=== PATIENT | male | born 1960 | race Caucasian/White ===

== ENCOUNTER 2018-06-01 19:28 | Inpatient (IN) | payer OTHER, SELFPAY ==
[2018-06-01 19:30] VITALS: BP 134/96; PULSE 118; RESP 18; TEMP 37; O2SAT 98; BMI 32.6
--- NOTE | 2018-06-01 20:19 | ED.RN ---
NO OLD EKG'S IN MUSE
[2018-06-01] MEDS: Ondansetron 4 MG/2 ML Vial IV (20:40)
[2018-06-01] MEDS: Morphine 4 MG/ML Syringe IV (20:40)
[2018-06-01] MEDS: 0.9% Normal Saline 1,000 ML 1000 ML IV (20:40)
[2018-06-01 20:51] LABS: Absolute Lymphocyte Count 1.98 X10^3/ul (0.83-4.51); Absolute Neutrophil Count 3.6 X10^3/uL (2.0-7.7); Basophil# 0.02 X10^3/uL; Basophil% 0.3 % (0-1); Eosinophil# 0.03 X10^3/uL; Eosinophils% 0.5 % (0-5); Hematocrit 44.7 % (40-54); Hemoglobin 15.2 g/dl (13.0-16.5); Lymphocyte # 1.98 X10^3/ul (4.0); Mean Corpuscular Hgb 29.7 pg (27.0-32.0); Mean Corpuscular Volume 87.3 fL (80-94); Mean Platelet Vol. 10.4 fl (6.2-12.0); Monocyte# 0.73 X10^3/uL; Monocyte% 11.4 % (0-10); Neutrophil % 56.5 % (47-70); Platelet Count 205 K/mm3 (150-450); RBC Distribution Width CV 13.3 % (11.6-14.6); RBC Distribution Width SD 42.2 fl (35.1-43.9); Red Blood Count 5.12 M/mm3 (4.6-6.2); White Blood Count 6.4 K/mm3 (4.4-11.0)
[2018-06-01 20:53] LABS: POSITIVE COUNT NO; POSITIVE DIFFERENTIAL NO; POSITIVE MORPHOLOGY NO
[2018-06-01 21:02] LABS: AST(SGOT) 43 U/L (15-37); Alanine Aminotransfer ALT/SGPT 28 U/L (16-61); Albumin, Serum 3.4 g/dL (3.2-5.0); Alkaline Phosphatase 78 U/L (45-117); Anion Gap 7 (5-15); BUN 12 mg/dL (7-18); BUN/Creat Ratio 11.8 RATIO (10-20); Bilirubin, Direct 0.07 mg/dL (0.00-0.30); Calcium,Total 8.2 mg/dL (8.5-10.1); Chloride 105 mmol/L (98-107); Creatinine, Serum 1.02 mg/dL (0.70-1.30); EST Glomerular Filtration Rate 80 mL/min (>60); Est Glom Filt Rate - Afr Amer 97 mL/min (>60); Estimated Creatinine Clearance 79.17 ml/min; Globulin 4.2 g/dL (2.2-4.2); Glucose 98 mg/dL (74-106); Potassium 4.4 mmol/L (3.5-5.1); Protein, Total 7.6 g/dL (6.4-8.2); Sodium Level 138 mmol/L (136-145)
[2018-06-01 21:29] LABS: Lactic Acid 0.9 mmol/L (0.4-2.0)
[2018-06-01 21:52] VITALS: BP 156/97; PULSE 98; RESP 15; O2SAT 95
[2018-06-01 22:13] LABS: Bacteria 0 SEEN /hpf (None Seen); Mucous, Urine 0 SEEN /hpf (<or=2+); Red Blood Cells-Urine 0 SEEN /hpf (0-5); White Blood Cells 0 SEEN /hpf (0-5)
[2018-06-01 22:14] LABS: Color, Urine Yellow (Yellow); Glucose, Dipstick Normal (Normal); Ketone-Dipstick Negative (Negative); Leukocyte Esterase-Dipstick Negative /ul (Negative); Nitrite-Dipstick Negative (Negative); Occult Blood-Urine Negative /ul (Negative); Protein-Dipstick Negative (Negative); Specific Gravity, Urine 1.015 (1.002-1.030); Urine Bilirubin Dipstick Negative (Negative); Urine Clarity Sl. Cloudy (Clear); Urine Urobilinogen Normal (Normal)
[2018-06-01] MEDS: 0.9% Normal Saline 1,000 ML 999 ML IV (22:15)
[2018-06-01 22:18] LABS: CPK Total, Creatine Kinase 188 U/L (39-308)
--- NOTE | 2018-06-01 22:18 | HP.PCM_ITS ---
Problem List (1) Generalized weakness Status: Acute History of Present Illness Date of Admission: 06/01/18 Chief Complaint: Generalized weakness ?2 days The patient is a 57 year old M with a significant history of PTSD, anxiety, hypertension who presents because of a inability to walk. Patient reports that 2 days ago he began to notice weakness in all his extremities. And his weakness has progressively worsened to a point that he is not able to walk. Associated with his symptoms is a generalized pain; more pronounced in his bilateral hips and thighs. He reports some transient tingling in his right hand. He states that he does not have shortness of breath at rest. However if he tries to move he developed shortness of breath. Past Medical History Medical History: Medical History (Last Updated 06/01/18 @ 23:14 by Maycol Lara MD) HTN (hypertension) I10 Allergies No Known Allergies Allergy (Verified 06/01/18 19:30) Home Medications: Ambulatory Orders Medication Instructions Recorded NK [NK] 06/01/18 Surgical History: - - Left hand surgery Psychiatric History: Anxiety, Post traumatic stress Lives: Roommate Smoking Status: Former smoker Tobacco Use: Chew Alcohol: None Drugs: None - *Family History Maternal History Items: Diabetes, Hypertension, Renal Disease Paternal History Items: No pertinent history Review of Systems Constitutional: Denies: Chills, Fever, Weight Change HEENT: Reports: -. Denies: Head Aches, Sinus Congestion, Sinus Drainage Cardiovascular: Denies: Chest Pain, Palpitations Respiratory: Reports: Shortness of breath upon exertion Gastrointestinal: Denies: Abdominal Pain, Nausea, Vomiting Genitourinary: Denies: Dysuria Musculoskeletal: Reports: Arm Pain, Leg Pain, Muscle pain, Neck Pain, Shoulder Pain Skin: Denies: Rash, Wounds Neurological: Reports: Tingling - Transient and right hand Psychiatric: Denies: Homicidal Ideations, Suicidal Ideations Hematologic/ Lymphatic: Denies: Easy Bruising, Easy Bleeding VTE Information - Inpt Only VTE Present on Admission: No VTE Mechan Device Prophylaxis: None VTE Pharm Prophylaxis ordered?: Yes Patient Problems: Active and Suspected Problems (Last Updated 06/01/18 @ 23:14 by Maycol Lara MD) Generalized weakness (Acute) - Physical Exam General: Alert, Oriented x3, Cooperative HEENT: Atraumatic, PERRLA, EOMI, Normocephalic, - - Thyroid unremarkable. Neck: Supple, No JVD, Negative Carotid Bruits Lungs: Clear to auscultation, Normal air movement Cardiovascular: Regular rate, No murmurs Abdomen: Bowel Sounds Present, Soft, Non Tender Extremities: No edema, Capillary Refill Less than 3 Seconds Skin: No rashes, No breakdown Musculoskeletal: Tenderness - Generalized tenderness. Lymphatic: No Cervical, Supraclavicular, or Inguinal Adenopathy Neurological: Cranial nerves II-XII grossly intact, - - Very restricted range of motion of all extremities. Right knee with 2 out of 4 deep tendon reflexes. All other extremities with hyporeflexes. Psych/Mental Status: Appropriate Vital Signs Temp Pulse Resp BP Pulse Ox 98.6 F 98 15 156/97 H 95 06/01/18 19:30 06/01/18 21:52 06/01/18 21:52 06/01/18 21:52 06/01/18 21:52 Oxygen Delivery Method Room Air Weight: 97.522 kg Body Mass Index (BMI) 32.6 Laboratory Tests Past 24 Hrs 06/01/18 06/01/18 06/01/18 20:30 20:30 20:30 WBC 6.4 RBC 5.12 Hgb 15.2 Hct 44.7 MCV 87.3 MCH 29.7 MCHC 34.0 RDW 13.3 RDW Differential 42.2 Plt Count 205 MPV 10.4 Immature Gran % (Auto) 0.300 Neut % (Auto) 56.5 Lymph % (Auto) 31.0 [place] % (Auto) 11.4 H Eos % (Auto) 0.5 Baso % (Auto) 0.3 Absolute Neuts (auto) 3.6 Absolute Lymphs (auto) 1.98 Total Counted Not Reportable Sodium 138 Potassium 4.4 Chloride 105 Carbon Dioxide 26.0 Anion Gap 7 BUN 12 Creatinine 1.02 Estim Creat Clear Calc 79.17 Est GFR (MDRD) Af Amer 97 Est GFR (MDRD) Non-Af 80 BUN/Creatinine Ratio 11.8 Glucose 98 Lactic Acid 0.9 Calcium 8.2 L Total Bilirubin 0.60 Direct Bilirubin 0.07 AST 43 H ALT 28 Alkaline Phosphatase 78 Total Creatine Kinase Troponin I < 0.015 Total Protein 7.6 Albumin 3.4 Globulin 4.2 Urine Color Urine Clarity Urine pH Ur Specific [place] Urine Protein Urine Glucose (UA) Urine Ketones Urine Occult Blood Urine Nitrite Urine Bilirubin Urine Urobilinogen Ur Leukocyte Esterase Urine RBC Urine WBC Ur Squamous Epith Cells Urine Bacteria Urine Mucus 06/01/18 06/01/18 21:50 22:05 WBC RBC Hgb Hct MCV MCH MCHC RDW RDW Differential Plt Count MPV Immature Gran % (Auto) Neut % (Auto) Lymph % (Auto) [place] % (Auto) Eos % (Auto) Baso % (Auto) Absolute Neuts (auto) Absolute Lymphs (auto) Total Counted Sodium Potassium Chloride Carbon Dioxide Anion Gap BUN Creatinine Estim Creat Clear Calc Est GFR (MDRD) Af Amer Est GFR (MDRD) Non-Af BUN/Creatinine Ratio Glucose Lactic Acid Calcium Total Bilirubin Direct Bilirubin AST ALT Alkaline Phosphatase Total Creatine Kinase Pending Troponin I Total Protein Albumin Globulin Urine Color Yellow Urine Clarity Sl. Cloudy Urine pH 7.0 Ur Specific [place] 1.015 Urine Protein Negative Urine Glucose (UA) Normal Urine Ketones Negative Urine Occult Blood Negative Urine Nitrite Negative Urine Bilirubin Negative Urine Urobilinogen Normal Ur Leukocyte Esterase Negative Urine RBC Pending Urine WBC Pending Ur Squamous Epith Cells Pending Urine Bacteria Pending Urine Mucus Pending Assessment/Plan All Active Problems (Last Updated 06/01/18 @ 23:14 by Maycol Lara MD) Generalized weakness (Acute) The patient is a 57 year old M with a significant history of PTSD, anxiety, hypertension who presents because of inability to walk; inability to raise his extremities general weakness and generalized pain. Generalized weakness, inability to walk, and generalized pain. Differential diagnosis includes Guillain-Saleh?, Spinal cord disease, Polymyositis, Multiple sclerosis, West Nile; hypothyroidism or others. Discussed with ED doctor to get a lumbar puncture for studies. Unsuccessful attempt. LP by fluoroscopy ordered. CFS studies including cell counts total protein and West Nile IgM ordered. Oxycodone 5 mg every 6 hours for pain Scheduled Tylenol Neurology consult Vital capacity and NIF every 6 hours MRI of brain and cervical spine Blood cultures ?2 Respiratory pathogen panel. TSH ordered. Hypertension The patient reports that his hypertension is well controlled without any medication Routine vitals PTSD/anxiety Clinical monitoring . DVT prophylaxis subcutaneous Lovenox Code Visit Inpatient E&M: 37462 Init Hosp L3
[2018-06-01 22:20] LABS: Squamous Epithelial Cells - UA 0-5 SEEN /hpf (0-5)
--- NOTE | 2018-06-01 23:21 | NURSING ---
Called [facility] charge nurselorena to send patient to the floor.
--- NOTE | 2018-06-01 23:30 | ED.VISSUMM ---
- ER Visit Summary Date of Service: 06/01/18 Chief Complaint: Weakness History of Present Illness: The patient is a 57 M with 2-3 day history of progressing weakness in his legs and arms. He had some difficulty breathing when he walked up the steps. No fever chills. No chest pain. No recent illness. Physical Examination: Not appear in acute distress. Moist mucous membranes, no obvious facial deformity No C-spine tenderness supple neck. Regular rate and rhythm without any obvious murmurs Clear lungs bilaterally speaking in full sentences without any obvious respiratory distress Abdomen soft and nontender no guarding or rebound Moves all extremities without any difficulty or pain. Skin does not show any obvious rashes or lesions, no trauma. Alert oriented ?3 with no gross focal deficit. Patient does have reflexes. He does have pain on palpation to his quadriceps muscles, he has weakness of both the arms and the legs, the leg somewhat worse. Emergency Department Course and Treatment: Patient has an unremarkable workup in the emergency department, he does not give any history of progressive ascending weakness, and he does have intact reflexes but the possibility of Guillain-Saleh? still there, I did attempt a lumbar puncture but because his body habitus I could not get it done. I discussed with the hospitalist for admission. Patient will need further workup tomorrow as well as a neurological consult. He will be observed tonight. Admit stable condition Impression: [Weakness] This note was generated with [employer] dictation software. It may contain incorrect words, spelling, and punctuation that were not noted in review of the chart prior to signing ED Disposition - Plan for ED Patient: Chief Complaint: Shortness of Breath
[2018-06-02] VITALS (18 sets, daily range): BP systolic 116–150; BP diastolic 67–98; PULSE 67–96; RESP 16–18; TEMP 36.6–37.1; O2SAT 94–96; BMI 32.5
[2018-06-02] MEDS: oxyCODONE 5 MG Tablet PO ×2 (00:47→17:46)
[2018-06-02 01:00] LABS: Thyroid Stim Hormone (TSH) 4.73 uIU/mL (0.358-3.74)
[2018-06-02 05:37] LABS: Anion Gap 11 (5-15); BUN 13 mg/dL (7-18); BUN/Creat Ratio 15.2 RATIO (10-20); Chloride 106 mmol/L (98-107); Creatinine, Serum 0.85 mg/dL (0.70-1.30); EST Glomerular Filtration Rate 99 mL/min (>60); Est Glom Filt Rate - Afr Amer 120 mL/min (>60); Glucose 124 mg/dL (74-106); Potassium 4.1 mmol/L (3.5-5.1); Sodium Level 142 mmol/L (136-145)
[2018-06-02] MEDS: Acetaminophen 325 MG Tablet 650 MG PO ×2 (06:30→13:25)
[2018-06-02 07:22] LABS: Mean Corp Hgb Conc 34.1 g/gl (32-36); Mean Platelet Vol. 10.5 fl (6.2-12.0); Platelet Count 203 K/mm3 (150-450); RBC Distribution Width CV 13.4 % (11.6-14.6); Red Blood Count 4.66 M/mm3 (4.6-6.2); Scan Indicated on CBC? Y/N NO; White Blood Count 5.2 K/mm3 (4.4-11.0)
[2018-06-02 08:36] LABS: Prothrombin Time (Protime)PT. 12.9 SECONDS (11.7-14.9)
[2018-06-02 08:37] LABS: Partial Thromboplast Time 34.9 Seconds (24.1-36.2)
--- NOTE | 2018-06-02 10:41 | CCN.REFER ---
See RN CM Assessment link. DC PLAN: undetermined. -awaiting PT/OT evaluations, neuro consult. -Pt was independent, drives prior to admission. Celio DICKINSONN RN ACM
[2018-06-02 11:23] LABS: Lyme Ab Screen Interpretation REF LAB
--- NOTE | 2018-06-02 13:18 | CYSPIN_PTH ---
PATIENT: KRYSTINA WOODS LOC: [facility] U#:[id number] AGE/SX: 57/M ROOM: [facility] RE06/01/[address]: Dr. Breann Delgado MD : 1960 BED: 1 DIS: 06/05/2018 SPEC #: [id number] RECD: 06/02/18 13:49 STATUS: DALY REQ #: [id number] MONA: 06/02/18 13:[address]: Kelsey Turner DEPT: CYTOLOGY RECD BY: Dexter Clement ENTERED: 06/02/18 13:51 SP TYPE: CYSPIN FL OTHR DR: DO Dr. Maycol Banks MD Dr. Norman Friedman, MD No Primary Care Phys Tissues: Cerebrospinal Fluid Procedures: Pap Stain (control) Special Stain Group II Cytospin Fluid HEADER OPERATION: Lumbar puncture PRE-OP DIAGNOSIS: Weakness TISSUE SUBMITTED: Cerebrospinal fluid for cytology DIAGNOSIS CYTOLOGY Cerebrospinal fluid for cytology (cytospin): Negative for malignant cells. SJ:braeden 06/03/18 CYTOLOGY STUDY Slides are reviewed. CYTOLOGY GROSS Received is 2 ml of clear colorless fluid labeled with the patient's name and and designated per the requisition as CSF. Submitted for cytology preparation. 06/02/18 TC:5 CPT: 68022
[2018-06-02 13:29] LABS: Cytology, Body Fluid / CSF SEE PATHOLOGY REPORT
--- NOTE | 2018-06-02 13:38 | PCM.PN.HOSP ---
Patient Problems: Active and Suspected Problems (Last Updated 06/01/18 @ 23:14 by Maycol Lara MD) Generalized weakness (Acute) Subjective: still with myalgias. symptoms began suddenly. never had this before. Vitals/I&O's: Vital Signs Temp Pulse Resp BP Pulse Ox 37.1 C 82 16 132/67 H 96 06/02/18 11:15 06/02/18 11:29 06/02/18 11:15 06/02/18 11:15 06/02/18 11:15 Oxygen Delivery Method Room Air Weight: 97 kg Body Mass Index (BMI) 32.5 Intake and Output for Last 24 Hours 05/31/18 06/01/18 06/02/18 23:59 23:59 23:59 Intake Total 1040 / 1040 Output Total 700 / 700 Balance 340 / 340 General: Alert, No apparent distress, - - uncomfortable. HEENT: Atraumatic, Normocephalic, - - atraumatic. Oral: Moist Mucosa, No Gingival or Mucosal Lesions/ Ulcerations Neck: No Nodes, Thyroid Normal Size and Texture Lungs: Clear to auscultation, Normal air movement, No rhonchi, No wheeze Cardiovascular: Regular rate, Regular Rhythm, Normal S1, Normal S2, No murmurs Abdomen: Bowel Sounds Present, Soft, Non Tender, Non-Distended, No Hepato-splenomegaly, Passing Flatus Extremities: No edema, No Calf Tenderness Skin: No rashes, No breakdown Musculoskeletal: No Tenderness to Palpation of Joints or Extremities, No Muscle Wasting Neurological: Neuro grossly intact, Sensory exam intact to light touch and pain, - - no clonus. Psych/Mental Status: Normal Affect, Appropriate Microbiology Past 72 Hours 06/02/18 01:40 Mucosa - Nose Respiratory Panel (PCR) - Final Laboratory Results 06/02/18 00:27: TSH 4.73 H 06/02/18 00:27: Free T4 Pending, Free T3 pg/dL Pending 06/02/18 05:05: WBC 5.2, RBC 4.66, Hgb 14.0, Hct 41.0, MCV 88.0, MCH 30.0, MCHC 34.1, RDW 13.4, RDW Differential 43.0, Plt Count 203, MPV 10.5 06/02/18 05:05: Sodium 142, Potassium 4.1, Chloride 106, Carbon Dioxide 25.0, Anion Gap 11, BUN 13, Creatinine 0.85, Estim Creat Clear Calc 95.00, Est GFR (MDRD) Af Amer 120, Est GFR (MDRD) Non-Af 99, BUN/Creatinine Ratio 15.2, Glucose 124 H, Calcium 8.0 L 06/02/18 05:05: SHARON Screen Pending, ANTONIO-1 Antibody Pending, SS-A/Ro IgG Antibody Pending, SS-B/La IgG Antibody Pending, Sm ([place]) Antibody Pending, ESTHETICIAN Antibody Pending, Scl-70 Scleroderma Ab Pending, Double Strand DNA Ab Pending, Centromere B Antibody Pending 06/02/18 05:05: PT 12.9, INR 1.0, APTT 34.9 06/02/18 05:30: Lyme Total Antibody Pending, Lyme Disease Interpret Pending 06/02/18 13:03: CMV DNA Qual PCR Pending 06/02/18 13:03: CSF Cryptococcus Ag Pending 06/02/18 13:03: Miscellaneous Cytology Pending 06/02/18 13:03: Enterovirus RNA (PCR) Pending 06/02/18 13:03: CSF Glucose Pending 06/02/18 13:03: Herpes Simplex Culture Pending, HSV I DNA PCR Pending, HSV II DNA PCR Pending, HSV Final Result Pending 06/02/18 13:03: CSF Total Protein Pending 06/02/18 13:03: CSF VZV DNA (PCR) Pending 06/02/18 13:03: CSF VDRL Pending 06/02/18 13:03: West Nile RNA (RT-PCR) Pending, West Nile Interp Pending Current Medications Bisacodyl (Dulcolax) 5 mg PO DAILY PRN PRN PRN Reason: Constipation Enoxaparin Sodium (Lovenox) 40 mg SC DAILY@1000 [place] Last Admin: 06/02/18 13:23 Dose: Not Given Magnesium Hydroxide (Milk Of Magnesia) 30 ml PO DAILY PRN PRN Reason: Constipation Ondansetron HCl (Zofran) 4 mg IV Q6H PRN PRN PRN Reason: NAUSEA/VOMITING Oxycodone HCl (Oxyir) 5 mg PO Q6H PRN PRN PRN Reason: PAIN Last Admin: 06/02/18 00:47 Dose: 5 mg Sodium Chloride () 5 - 30 ml IV UD PRN PRN Reason: SALINE FLUSH Medical Necessity - Tobacco Use Smoking Status: Former smoker Tobacco Use: Chew Assessment/Plan All Active Problems (Last Updated 06/01/18 @ 23:14 by Maycol Lara MD) Generalized weakness (Acute) 1. myalgias; unclear etiology CK normal MRI brain and Cspine negative. MRI L spine report pending. supportive mgmt 2. Weakness, generalized no focal deficits question if related to myalgias 3. DVT proph: LMWH. Code Visit Inpatient E&M: 98921 Subs Hosp L3
[2018-06-02 13:44] LABS: Appearance CSF (character) CLEAR (Clear); Auto B Fluid Analyzer BKGD Ct COUNTS W/IN LIMITS (W/IN LIMITS); CSF Color COLORLESS (Colorless); Tested Tube # 3; Total Cell Count CSF 0.004 10^3/uL (0.000-0.000); White Count, CSF 0.004 10^3/uL (0.000-0.000)
[2018-06-02 13:45] LABS: Body Fluid Mononuclear WBC # 0.002 10^3/uL; Body Fluid Polynuclear WBC # 0.002 10^3/uL; Body Fluid QC Type(s) BF1Q
--- NOTE | 2018-06-02 13:50 | PCM.CONS.GEN ---
Problem List (1) Generalized weakness Status: Acute Reason for Consult Date of Consultation: 06/02/18 Reason for Consultation: generalized weakness and pain History of Present Illness: The patient is a 57 year old CM with PMH HTN (not on medications-per patient he does not visit physicians regularly), EVY not on CPAP admitted with generalized weakness, and pain. 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 Does not use cane or walker to ambulate, denies any falls, denies any sick contacts, denies any rash, tick bite, denies any history of respiratory infection or diarrhea recently. At present denies any BATISTA, visual disturbances, speech disturbances, focal motor weakness or sensory loss. ED documented ascending weakness but there is no ascending weakness per patient's clinical history, even though had normal reflexes in the ED still it was felt to be GBS by ED physician and LP was attempted which failed and he is due to undergo LP under fluoroscopy guidance soon. Per documentation he denied any SOB at rest but may have some breathing issues on moving. But he denies any SOB at present.He does complaint of neck pain and lower back pain with radicular symptoms, denies any urinary retention or incontinence. [] Past Medical History Medical History: Medical History (Last Updated 06/01/18 @ 23:14 by Maycol Lara MD) HTN (hypertension) I10 Allergies No Known Allergies Allergy (Verified 06/01/18 19:30) Home Medications: Ambulatory Orders Medication Instructions Recorded NK [NK] 06/01/18 Surgical History: - - Left hand surgery Psychiatric History: Anxiety, Post traumatic stress Lives: Roommate Smoking Status: Former smoker Tobacco Use: Chew Alcohol: None Drugs: None - *Family History Maternal History Items: Diabetes, Hypertension, Renal Disease, Stroke, - - stroke in mother Paternal History Items: No pertinent history Review of Systems Constitutional: Reports: - - complete ROS negative except as documented in HPI - Physical Exam General: Alert HEENT: Normocephalic Neck: Supple Lungs: Normal air movement Cardiovascular: Normal S1, Normal S2 Abdomen: Bowel Sounds Present Extremities: No cyanosis Neurological: - - consious, alert, AoA x3, CN 2-12 grossly intact, pupils BERL, power- examination is severely restricted to pain, he does move both UE but has decreased effort due to pain, is not able to lift the LE against gravity again due to pain in the legs and thighs per patient, Reflexes B/L ++ B/S/T/K/ + A, plantars B/L flexor (patient able to flex his knees when plantars were elicited but was unable to flex the knees when asked to as was complaining of pain-was effort dependent too), no sensory loss, gait deferred, no cerebellar signs. Psych/Mental Status: Normal Affect Vital Signs Temp Pulse Resp BP Pulse Ox 98.8 F 82 16 132/67 H 96 06/02/18 11:15 06/02/18 11:29 06/02/18 11:15 06/02/18 11:15 06/02/18 11:15 Oxygen Delivery Method Room Air Weight: 97 kg Body Mass Index (BMI) 32.5 Intake and Output for Last 24 Hours 05/31/18 06/01/18 06/02/18 23:59 23:59 23:59 Intake Total 1040 / 1040 Output Total 700 / 700 Balance 340 / 340 Microbiology Past 72 Hours 06/02/18 01:40 Respiratory Panel (PCR) - Final Mucosa - Nose Laboratory Tests Past 24 Hrs 06/02/18 06/02/18 06/02/18 00:27 00:27 05:05 WBC 5.2 RBC 4.66 Hgb 14.0 Hct 41.0 MCV 88.0 MCH 30.0 MCHC 34.1 RDW 13.4 RDW Differential 43.0 Plt Count 203 MPV 10.5 PT INR APTT Sodium Potassium Chloride Carbon Dioxide Anion Gap BUN Creatinine Estim Creat Clear Calc Est GFR (MDRD) Af Amer Est GFR (MDRD) Non-Af BUN/Creatinine Ratio Glucose Calcium TSH 4.73 H Free T4 Pending Free T3 pg/dL Pending CSF Appearance CSF Color CSF WBC CSF RBC CSF Cell Count Tube # CSF Total Cell Counted CSF Comment CSF Glucose CSF Total Protein CSF VDRL CSF Cryptococcus Ag CSF VZV DNA (PCR) SHARON Screen ANTONIO-1 Antibody SS-A/Ro IgG Antibody SS-B/La IgG Antibody Sm ([place]) Antibody FELT DYEING MACHINE TENDER Antibody Scl-70 Scleroderma Ab Double Strand DNA Ab Centromere B Antibody Lyme Total Antibody Lyme Disease Interpret CMV DNA Qual PCR West Nile RNA (RT-PCR) [place] Interp Enterovirus RNA (PCR) Herpes Simplex Culture HSV I DNA PCR HSV II DNA PCR HSV Final Result Miscellaneous Cytology 06/02/18 06/02/18 06/02/18 05:05 05:05 05:05 WBC RBC Hgb Hct MCV MCH MCHC RDW RDW Differential Plt Count MPV PT 12.9 INR 1.0 APTT 34.9 Sodium 142 Potassium 4.1 Chloride 106 Carbon Dioxide 25.0 Anion Gap 11 BUN 13 Creatinine 0.85 Estim Creat Clear Calc 95.00 Est GFR (MDRD) Af Amer 120 Est GFR (MDRD) Non-Af 99 BUN/Creatinine Ratio 15.2 Glucose 124 H Calcium 8.0 L TSH Free T4 Free T3 pg/dL CSF Appearance CSF Color CSF WBC CSF RBC CSF Cell Count Tube # CSF Total Cell Counted CSF Comment CSF Glucose CSF Total Protein CSF VDRL CSF Cryptococcus Ag CSF VZV DNA (PCR) SHARON Screen Pending ANTONIO-1 Antibody Pending SS-A/Ro IgG Antibody Pending SS-B/La IgG Antibody Pending Sm ([place]) Antibody Pending F[employer]T D[employer]ING MACHINE TENDER Antibody Pending Scl-70 Scleroderma Ab Pending Double Strand DNA Ab Pending Centromere B Antibody Pending Lyme Total Antibody Lyme Disease Interpret CMV DNA Qual PCR West [place] RNA (RT-PCR) [place] Interp Enterovirus RNA (PCR) Herpes Simplex Culture HSV I DNA PCR HSV II DNA PCR HSV Final Result Miscellaneous Cytology 06/02/18 06/02/18 06/02/18 05:30 13:03 13:03 WBC RBC Hgb Hct MCV MCH MCHC RDW RDW Differential Plt Count MPV PT INR APTT Sodium Potassium Chloride Carbon Dioxide Anion Gap BUN Creatinine Estim Creat Clear Calc Est GFR (MDRD) Af Amer Est GFR (MDRD) Non-Af BUN/Creatinine Ratio Glucose Calcium TSH Free T4 Free T3 pg/dL CSF Appearance CSF Color CSF WBC CSF RBC CSF Cell Count Tube # CSF Total Cell Counted CSF Comment CSF Glucose CSF Total Protein CSF VDRL CSF Cryptococcus Ag Pending CSF VZV DNA (PCR) SHARON Screen ANTONIO-1 Antibody SS-A/Ro IgG Antibody SS-B/La IgG Antibody Sm ([place]) Antibody FELT DYEING MACHINE TENDER Antibody Scl-70 Scleroderma Ab Double Strand DNA Ab Centromere B Antibody Lyme Total Antibody Pending Lyme Disease Interpret Pending CMV DNA Qual PCR Pending [place] RNA (RT-PCR) [place] Interp Enterovirus RNA (PCR) Herpes Simplex Culture HSV I DNA PCR HSV II DNA PCR HSV Final Result Miscellaneous Cytology 06/02/18 06/02/18 06/02/18 13:03 13:03 13:03 WBC RBC Hgb Hct MCV MCH MCHC RDW RDW Differential Plt Count MPV PT INR APTT Sodium Potassium Chloride Carbon Dioxide Anion Gap BUN Creatinine Estim Creat Clear Calc Est GFR (MDRD) Af Amer Est GFR (MDRD) Non-Af BUN/Creatinine Ratio Glucose Calcium TSH Free T4 Free T3 pg/dL CSF Appearance CSF Color CSF WBC CSF RBC CSF Cell Count Tube # CSF Total Cell Counted CSF Comment CSF Glucose Pending CSF Total Protein CSF VDRL CSF Cryptococcus Ag CSF VZV DNA (PCR) SHARON Screen ANTONIO-1 Antibody SS-A/Ro IgG Antibody SS-B/La IgG Antibody Sm ([place]) Antibody FELT DYEING MACHINE TENDER Antibody Scl-70 Scleroderma Ab Double Strand DNA Ab Centromere B Antibody Lyme Total Antibody Lyme Disease Interpret CMV DNA Qual PCR [place] RNA (RT-PCR) [place] Interp Enterovirus RNA (PCR) Pending Herpes Simplex Culture HSV I DNA PCR HSV II DNA PCR HSV Final Result Miscellaneous Cytology Pending 06/02/18 06/02/18 06/02/18 13:03 13:03 13:03 WBC RBC Hgb Hct MCV MCH MCHC RDW RDW Differential Plt Count MPV PT INR APTT Sodium Potassium Chloride Carbon Dioxide Anion Gap BUN Creatinine Estim Creat Clear Calc Est GFR (MDRD) Af Amer Est GFR (MDRD) Non-Af BUN/Creatinine Ratio Glucose Calcium TSH Free T4 Free T3 pg/dL CSF Appearance CSF Color CSF WBC CSF RBC CSF Cell Count Tube # CSF Total Cell Counted CSF Comment CSF Glucose CSF Total Protein Pending CSF VDRL CSF Cryptococcus Ag CSF VZV DNA (PCR) Pending SHARON Screen ANTONIO-1 Antibody SS-A/Ro IgG Antibody SS-B/La IgG Antibody Sm ([place]) Antibody FELT DYEING MACHINE TENDER Antibody Scl-70 Scleroderma Ab Double Strand DNA Ab Centromere B Antibody Lyme Total Antibody Lyme Disease Interpret CMV DNA Qual PCR [place] RNA (RT-PCR) [place] Interp Enterovirus RNA (PCR) Herpes Simplex Culture Pending HSV I DNA PCR Pending HSV II DNA PCR Pending HSV Final Result Pending Miscellaneous Cytology 06/02/18 06/02/18 06/02/18 13:03 13:03 13:07 WBC RBC Hgb Hct MCV MCH MCHC RDW RDW Differential Plt Count MPV PT INR APTT Sodium Potassium Chloride Carbon Dioxide Anion Gap BUN Creatinine Estim Creat Clear Calc Est GFR (MDRD) Af Amer Est GFR (MDRD) Non-Af BUN/Creatinine Ratio Glucose Calcium TSH Free T4 Free T3 pg/dL CSF Appearance Pending CSF Color Pending CSF WBC Pending CSF RBC Pending CSF Cell Count Tube # Pending CSF Total Cell Counted Pending CSF Comment Pending CSF Glucose CSF Total Protein CSF VDRL Pending CSF Cryptococcus Ag CSF VZV DNA (PCR) SHARON Screen ANTONIO-1 Antibody SS-A/Ro IgG Antibody SS-B/La IgG Antibody Sm ([place]) Antibody FELT DYEING MACHINE TENDER Antibody Scl-70 Scleroderma Ab Double Strand DNA Ab Centromere B Antibody Lyme Total Antibody Lyme Disease Interpret CMV DNA Qual PCR [place] RNA (RT-PCR) Pending West [place] Interp Pending Enterovirus RNA (PCR) Herpes Simplex Culture HSV I DNA PCR HSV II DNA PCR HSV Final Result Miscellaneous Cytology Assessment/Plan All Active Problems (Last Updated 06/01/18 @ 23:14 by Maycol Lara MD) Generalized weakness (Acute) The patient is a 57 year old CM with PMH HTN (not on medications-per patient he does not visit physicians regularly), EVY not on CPAP admitted with generalized weakness, and pain. 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 Does not use cane or walker to ambulate, denies any falls, denies any sick contacts, denies any rash, tick bite, denies any history of respiratory infection or diarrhea recently. At present denies any BATISTA, visual disturbances, speech disturbances, focal motor weakness or sensory loss. ED documented ascending weakness but there is no ascending weakness per patient's clinical history, even though had normal reflexes in the ED still it was felt to be GBS by ED physician and LP was attempted which failed and he is due to undergo LP under fluoroscopy guidance soon. Per documentation he denied any SOB at rest but may have some breathing issues on moving. But he denies any SOB at present.He does complaint of neck pain and lower back pain with radicular symptoms, denies any urinary retention or incontinence. Impression Generalized pain/weakness, myalgias Unlikely to be GBS at present clinically Plan -Labs reviewed- normal except high AST 43 and TSH-4.73 -Total CK-188 normal -MRI brain w/w/o contrast- reported nothing acute -MRI C spine w/w/o contrast-reported no extruded disc fragment, moderate stenosis of the left C6-C7 neural foramen, mild stenosis of the right C5-C6 neural foramen, minimal anterior wedging of C6 superior endplate, may be developmental or from remote injury, minimal anterior wedging of T1 superior endplate may be developmental or from remote injury, minimal compression fracture of T3 superior endplate may be from remote injury. -Recommend spine surgery consult -Await LP, west Nile testing, Lyme testing and rheumatological testing and anti Antonio ab testing. -Await MRI L spine -Can check NCS both LE/UE if possible. -Check UDS, ESR, CRP -PT/OT -GI/DVT prophylaxis -Fall precautions -Further medical management per primary team -Please call with questions if any -Thank you for allowing us to participate in patient's care and management I spent 60 minutes taking history, doing physical examination, reviewing medical records, coordinating care and counseling the patient.
[2018-06-02 13:52] LABS: Free T3 3.3 pg/mL (2.18-3.98); T4 Free Direct 1.06 ng/dL (0.76-1.46)
[2018-06-02 14:03] LABS: RBC Count, Spinal Fluid 3 /mm-3 (None seen)
[2018-06-02 14:11] LABS: Glucose Spinal Fluid 62 mg/dL (40-75)
[2018-06-02 14:37] LABS: Erythrocyte Sedimentation Rate 26 mm/hr (0-20)
[2018-06-02] MEDS: 0.9% Normal Saline 1,000 ML 150 ML IV (14:52)
[2018-06-02] MEDS: Acetaminophen 500 MG Tablet PO (16:54)
[2018-06-02 22:03] LABS: Amphetamine Urine VISTA NEGATIVE (<1000 ng/mL); Barbiturate Urine VISTA NEGATIVE (< 200 ng/mL); Benzodiazepine Urine VISTA NEGATIVE (< 200 ng/mL); Cocaine Urine VISTA NEGATIVE (< 300 ng/mL); Ecstacy Urine VISTA NEGATIVE (< 500 ng/mL); Methadone Urine VISTA NEGATIVE (< 300 ng/mL); PCP Urine VISTA NEGATIVE (< 25 ng/mL); THC Urine VISTA NEGATIVE (< 50 ng/mL); Vista UDS pH Range 5
[2018-06-03] VITALS (14 sets, daily range): BP systolic 135–155; BP diastolic 83–99; PULSE 76–95; RESP 16–18; TEMP 36.1–36.7; O2SAT 92–99
[2018-06-03] MEDS: oxyCODONE 5 MG Tablet PO ×2 (05:25→19:46)
--- NOTE | 2018-06-03 13:36 | PCM.PN.HOSP ---
Patient Problems: Active and Suspected Problems (Last Updated 06/01/18 @ 23:14 by Maycol Lara MD) Generalized weakness (Acute) Subjective: Still with pain, primarily in his legs. Vitals/I&O's: Vital Signs Temp Pulse Resp BP Pulse Ox 36.1 C L 87 16 135/93 H 99 06/03/18 08:24 06/03/18 10:59 06/03/18 08:24 06/03/18 08:24 06/03/18 08:24 Oxygen Delivery Method Room Air Weight: 97 kg Body Mass Index (BMI) 32.5 Intake and Output for Last 24 Hours 06/01/18 06/02/18 06/03/18 23:59 23:59 23:59 Intake Total 2705 / 2705 Output Total 1950 / 1950 Balance 755 / 755 General: Alert, - - uncomfortable. afebrile. HEENT: Atraumatic, Normocephalic Oral: Moist Mucosa, No Gingival or Mucosal Lesions/ Ulcerations Neck: No Nodes, Thyroid Normal Size and Texture Lungs: Clear to auscultation, Normal air movement, No rhonchi, No wheeze Cardiovascular: Regular rate, Regular Rhythm, Normal S1, Normal S2, No murmurs Abdomen: Bowel Sounds Present, Soft, Non Tender, Non-Distended, No Hepato-splenomegaly Skin: No rashes, No breakdown Musculoskeletal: No Tenderness to Palpation of Joints or Extremities, No Muscle Wasting Neurological: - - no clonus. DTR 3/4 in LE (patellar) bilaterally. Psych/Mental Status: Normal Affect, Appropriate Microbiology Past 72 Hours 06/02/18 13:03 Csf, Spinal Fluid Gram Stain - Final 06/02/18 13:03 Csf, Spinal Fluid CSF Culture - Preliminary No growth in 24 hours. Final to follow. 06/02/18 01:40 Mucosa - Nose Respiratory Panel (PCR) - Final Laboratory Results 06/02/18 00:27: Free T4 1.06, Free T3 pg/dL 3.3 06/02/18 05:05: ESR 26 H 06/02/18 05:05: C-React Prot High Sens 10.30 H 06/02/18 13:03: Miscellaneous Cytology SEE PATHOLOGY REPORT 06/02/18 13:03: CSF Glucose 62 06/02/18 13:03: CSF Total Protein 40.0 06/02/18 13:07: Fld Polynuclear WBCs # 0.002, Fld Polynuclear WBCs % 50.0, Fluid Mononuclear WBCs 0.002, Fld Mononuclear WBCs % 50.0, CSF Appearance CLEAR, CSF Color COLORLESS, CSF WBC 0.004 H, CSF RBC 3 H, CSF Cell Count Tube # 3, CSF Total Cell Counted 0.004 H, CSF Comment May follow 06/02/18 20:00: Urine Opiates Screen POSITIVE H, Urine Methadone Screen NEGATIVE, Ur Barbiturates Screen NEGATIVE, Ur Phencyclidine Scrn NEGATIVE, Ur Amphetamines Screen NEGATIVE, U Methamphetamin-MDMA NEGATIVE, U Benzodiazepines Scrn NEGATIVE, Urine Cocaine Screen NEGATIVE, U Cannabinoids Screen NEGATIVE, Ur Drug Screen Comment Current Medications Acetaminophen (Tylenol) 500 mg PO Q8H PRN PRN Reason: PAIN Last Admin: 06/02/18 16:54 Dose: 500 mg Bisacodyl (Dulcolax) 5 mg PO DAILY PRN PRN PRN Reason: Constipation Enoxaparin Sodium (Lovenox) 40 mg SC DAILY@1000 [place] Last Admin: 06/03/18 08:35 Dose: Not Given Magnesium Hydroxide (Milk Of Magnesia) 30 ml PO DAILY PRN PRN Reason: Constipation Ondansetron HCl (Zofran) 4 mg IV Q6H PRN PRN PRN Reason: NAUSEA/VOMITING Oxycodone HCl (Oxyir) 5 mg PO Q6H PRN PRN PRN Reason: PAIN Last Admin: 06/03/18 05:25 Dose: 5 mg Sodium Chloride () 5 - 30 ml IV UD PRN PRN Reason: SALINE FLUSH Medical Necessity - Tobacco Use Smoking Status: Former smoker Tobacco Use: Chew Assessment/Plan All Active Problems (Last Updated 06/01/18 @ 23:14 by Maycol Lara MD) Generalized weakness (Acute) 1. myalgias; unclear etiology CK normal MRI brain and Cspine negative. MRI L spine negative LP negative DW Dr. Turner, ordered a NCT supportive mgmt 2. Weakness, generalized no focal deficits question if related to myalgias 3. DVT proph: LMWH. Code Visit Inpatient E&M: 50810 Subs Hosp L3
--- NOTE | 2018-06-03 13:46 | CASEMGMT ---
RN KENA Note. PT/OT notes reviewed. Medical work up continues. RN CM spoke with NATALIA Villarreal re: possible dc needs if does not improve. CM will follow to assist with DC planning evaluation, equipment needs, possible HHS vs SNF. Celio DICKINSONN RN ACM
[2018-06-03] MEDS: 0.9% NaCl Peripheral Flush Adult/Peds IV (14:30)
[2018-06-03 20:07] LABS: HSV 1 By PCR Negative (Negative)
[2018-06-04] VITALS (16 sets, daily range): BP systolic 122–153; BP diastolic 67–97; PULSE 78–101; RESP 14–18; TEMP 36.4–37; O2SAT 94–97
--- NOTE | 2018-06-04 07:32 | PCM.PN.HOSP ---
Patient Problems: Active and Suspected Problems (Last Updated 06/01/18 @ 23:14 by Maycol Lara MD) Generalized weakness (Acute) Subjective: Patient was seen and examined. He complains of still feeling weak. He was able to ambulate with therapy but got slightly short of breath. Denies any dizziness or palpitations or chest pain. Vitals/I&O's: Vital Signs Temp Pulse Resp BP Pulse Ox 97.7 F L 79 16 145/90 H 97 06/04/18 05:52 06/04/18 05:52 06/04/18 05:52 06/04/18 05:52 06/04/18 05:52 Oxygen Delivery Method Room Air Weight: 97 kg Body Mass Index (BMI) 32.5 Intake and Output for Last 24 Hours 06/02/18 06/03/18 06/04/18 23:59 23:59 23:59 Intake Total 2705 / 2705 860 / 860 Output Total 1950 / 1950 Balance 755 / 755 860 / 860 General: Alert, Oriented x3, Cooperative, No apparent distress HEENT: Atraumatic, PERRLA, EOMI, Normocephalic Oral: Moist Mucosa Neck: Supple Lungs: Clear to auscultation, Normal air movement Cardiovascular: Regular rate, Regular Rhythm, Normal S1, Normal S2, No murmurs Abdomen: Bowel Sounds Present, Soft, Non Tender, Non-Distended, No Hepato-splenomegaly Extremities: No edema Skin: No rashes, No breakdown Musculoskeletal: No Tenderness to Palpation of Joints or Extremities Lymphatic: No Cervical, Supraclavicular, or Inguinal Adenopathy Neurological: Cranial nerves II-XII grossly intact, Neuro grossly intact Psych/Mental Status: Normal Affect, Appropriate Microbiology Past 72 Hours 06/02/18 13:03 Csf, Spinal Fluid Gram Stain - Final 06/02/18 13:03 Csf, Spinal Fluid CSF Culture - Preliminary No growth in 24 hours. Final to follow. 06/02/18 01:40 Mucosa - Nose Respiratory Panel (PCR) - Final Laboratory Results 06/02/18 13:03: Miscellaneous Cytology SEE PATHOLOGY REPORT Current Medications Acetaminophen (Tylenol) 500 mg PO Q8H PRN PRN Reason: PAIN Last Admin: 06/02/18 16:54 Dose: 500 mg Bisacodyl (Dulcolax) 5 mg PO DAILY PRN PRN PRN Reason: Constipation Enoxaparin Sodium (Lovenox) 40 mg SC DAILY@1000 [place] Last Admin: 06/03/18 08:35 Dose: Not Given Magnesium Hydroxide (Milk Of Magnesia) 30 ml PO DAILY PRN PRN Reason: Constipation Ondansetron HCl (Zofran) 4 mg IV Q6H PRN PRN PRN Reason: NAUSEA/VOMITING Oxycodone HCl (Oxyir) 5 mg PO Q6H PRN PRN PRN Reason: PAIN Last Admin: 06/03/18 19:46 Dose: 5 mg Sodium Chloride () 5 - 30 ml IV UD PRN PRN Reason: SALINE FLUSH Last Admin: 06/03/18 14:30 Dose: 10 ml Medical Necessity - Tobacco Use Smoking Status: Former smoker Tobacco Use: Chew Assessment/Plan All Active Problems (Last Updated 06/01/18 @ 23:14 by Maycol Lara MD) Generalized weakness (Acute) 57-year-old male with no significant past medical history comes in with generalized weakness and inability to walk. 1. Debility, myalgias, unclear etiology, Elevated CRP and ESR CK normal MRI brain is normal, C-spine MRI shows C6-C7 moderate spinal stenosis, MRI lumbar spine shows mild canal stenosis. CSF pathology so far is negative, neurology workup still pending, patient is being evaluated by PT and OT 2. DVT prophylaxis with Lovenox subcu Code Visit Inpatient E&M: 64804 Subs Hosp L2
[2018-06-04] MEDS: Enoxaparin 40 MG/0.4 ML Syringe SC (08:57)
[2018-06-04 11:54] LABS: HSV 2 By PCR Negative (Negative)
[2018-06-04 12:04] LABS: ANTINUCLEAR ANTIBODIES DIRECT Negative (Negative)
[2018-06-04 12:08] LABS: Cryptococcus Antigen CSF Negative (Negative)
[2018-06-04 15:05] LABS: Pathologist Review Reviewed
[2018-06-04] MEDS: Magnesium Hydroxide 30 ML UDC PO (15:10)
[2018-06-04] MEDS: Acetaminophen 500 MG Tablet PO (15:10)
--- NOTE | 2018-06-04 16:08 | NEURO_ITS ---
NCS and/or EMG Patient Report Ordering Doctor: Pete Lester DATE OF SERVICE: 06/03/18 Mark Sylvester is referred for electrodiagnostic testing of the right upper and right lower limb due to generalized weakness. Electrodiagnostic findings: Right median and ulnar motor studies are within normal limits. Normal right common peroneal and tibial motor response. Median , ulnar, tibial and peroneal F waves are normal. Normal H reflex bilaterally. Sensory responses are within normal limits. Needle EMG testing was not performed. Electrodiagnostic impression: This is a normal nerve conduction study of the right upper and right lower limb. There is no electrodiagnostic evidence for peripheral neuropathy. If there are any further questions, please do not hesitate to contact me
[2018-06-04] MEDS: oxyCODONE 5 MG Tablet PO (20:07)
[2018-06-05] VITALS (7 sets, daily range): BP systolic 120–135; BP diastolic 67–88; PULSE 75–93; RESP 16; TEMP 36.1–36.3; O2SAT 96–97
[2018-06-05] MEDS: Enoxaparin 40 MG/0.4 ML Syringe SC (10:07)
--- NOTE | 2018-06-05 10:51 | PCM.DC ---
- Discharge Diagnoses Current Active Problems: Current Active and Chronic Problems (Last Updated 06/01/18 @ 23:14 by Maycol Lara MD) Generalized weakness (Acute) Reason(s) for Visit for Discharge Instructions: Weakness You will use the following diet at home:: Regular Your food should be the consistency of: Regular Your liquids should be the consistency of: Regular/Thin Discharge Activity: Return to Normal Activity Additional Instructions: You have been referred to an outpatient physical therapy for warm water therapy. You should follow-up with a primary care physician for the rest of your results. Ok to take tylenol as needed for body pain Allergies/Adverse Reactions: Allergies No Known Allergies Allergy (Verified 06/01/18 19:30) Medications to take at Discharge NK [NK] 06/01/18 Primary Care Physician: Care Physician,No Primary [Primary Care Provider] - Please follow up with your Primary Care Physician in: within 2 weeks Test Results: Test results from this visit will be discussed in further detail at your follow-up appointment, if applicable. Proposed Discharge Date: 06/05/18
--- NOTE | 2018-06-05 10:53 | CASEMGMT ---
Addendum entered by Giancarlo Brooke 06/05/18 11:34: Discussed PCP with patient who has not established with PCP in [facility] yet. Request was for [facility]. MESFIN ESCUDERO called to office. They are unable to accept pt at this time. Call to Dr. Norris's office. They are able to take pt on Saturday, May @ 2:30 pm. Appointment card with [place] address given to pt. Pt states he will see this physician. Dr. Ortiz updated. Milton GUERRA Original Note: Addendum entered by Giancarlo Brooke 06/05/18 11:07: Script for Outpt therapy faxed to [facility]. Milton GUERRA Original Note: MESFIN ESCUDERO Note: discussed Outpt rehab with pt. [facility] has pool can be used for rehab. [facility] to [facility], they do not have pool. Script for Outpt Rehab can be given to pt on dc and he will make first appt. Milton GUERRA
--- NOTE | 2018-06-05 10:53 | PCM.DC.SUM ---
Discharge Date and Diagnosis Date of Admission: 06/01/18 Date of Discharge: 06/05/18 - Primary Discharge Diagnosis Active and Suspected Problems (Last Updated 06/01/18 @ 23:14 by Maycol Lara MD) Generalized weakness (Acute) Debility Hospital Course and Treatment Imaging Results: Clinical Impression(s) from Imaging Studies Chest X-Ray 06/01/18 20:19 IMPRESSION: No acute cardiopulmonary pathology Electronically Signed: Mark Gómez MD at 21:05 EDT , Service support , Brain CT 06/01/18 22:24 IMPRESSION: Mild periventricular white matter ischemic changes. No evidence for acute intracranial bleed. If concern for acute infarct MRI recommended Electronically Signed: Mark Gómez MD at 23:28 EDT , Service support , Brain MRI 06/01/18 23:53 IMPRESSION: Normal unenhanced and enhanced MRI of the brain. Electronically Signed: Cirilo Jay MD at 10:32 EDT , Service support , Cervical Spine MRI 06/01/18 23:53 IMPRESSION: 1. No MRI evidence of cervical extruded disc fragment. 2. Moderate stenosis of the left C6-C7 intervertebral neural foramen is suspicious study due to osteophytes arising from the left uncovertebral joint. 3. Mild stenosis of the right C5-C6 intervertebral neural foramen due to osteophyte arising from the right uncovertebral joint. 4. Minimal anterior wedging of C6 superior endplate may be developmental or from remote injury. 5. Minimal anterior wedging of T1 superior endplate may be developmental or from remote injury. 6. Minimal compression fracture of the T3 superior endplate may be from remote injury. Electronically Signed: Cirilo Jay MD at 10:30 EDT , Service support , Lumbar Puncture Fluoroscopy 06/02/18 06:00 IMPRESSION: Successful fluoroscopic-guided lumbar puncture. Electronically Signed: Dagoberto Knight MD at 13:28 EDT Tel [phone], Service support , Lumbar Spine MRI 06/02/18 09:52 IMPRESSION: 1. No MRI evidence of lumbar extruded disc fragment. 2. Mild L5-S1 disc space height narrowing with minimal degenerative anterolisthesis of L5 on S1 and moderate right degenerative facet arthropathy. 3. Mild central canal stenosis at L4-L5 disc level secondary to developmentally short pedicles. The AP canal diameter is 9 mm. 4. Mild central canal stenosis at L3-L4 disc level secondary to developmentally short pedicles. The AP canal diameter is 10 mm. 5. Mild central canal stenosis at L2-L3 disc level secondary to developmentally short pedicles. The AP canal diameter is 9 mm. 6. Mild central canal stenosis at the L1-L2 disc level secondary to developmentally short pedicles. The AP canal diameter is 10 mm. Electronically Signed: Cirilo Jay MD at 14:02 EDT , Service support , Neurology Operations: None Procedures: - - EMG Summary of Care Provided: 57-year-old male with no significant past medical history comes in with generalized weakness and inability to walk. Patient woke up with generalised weakness and inability to walk. He had tried getting up and had bilateral hip pain. This progressed with worsening weakness and inability to move. 1. Debility, myalgias, unclear etiology, labs showed elevated CRP and ESR, CK normal, otherwise normal blood work. MRI brain is normal, C-spine MRI shows C6-C7 moderate spinal stenosis, MRI lumbar spine shows mild canal stenosis. CSF pathology at time of discharge was so far negative. Neurology was consulted. EMG was negative. Patient was evaluated by PT and OT and outpatient therapy with wartm water therapy was recommended. The rest of the lab work including Lyme disease serology, West Nile were all pending. He was given a primary care doctor to follow-up with. Discharge Diet: No Restrictions Discharge Activity: Return to Normal Activity Home Medications: Medications to take at Discharge NK [NK] 06/01/18 Primary Care Physician: Care Physician,No Primary [Primary Care Provider] - Please follow up with your Primary Care Physician in: within 2 weeks Disposition: Home Minutes spent on discharge:: 45 Patient Condition:: Stable Medical Necessity - Tobacco Use Smoking Status: Former smoker Tobacco Use: Chew Meaningful Use Info Meaningful Use Diagnoses (Choose all that apply): None applicable Code Visit Inpatient E&M: 87012 Disch Hosp
[2018-06-05 11:00] LABS: VDRL Cerebrospinal Fluid Non Reactive (Non Rea:<1:1)
[2018-06-05 11:10] LABS: CMV by PCR Negative (Negative); Enterovirus By PCR Negative (Negative)
[2018-06-05 11:16] LABS: Lyme Scn Total Ab w/Rflx <0.91 ISR (0.00-0.90)
[2018-06-05 11:50] LABS: Anion Gap 9 (5-15); BUN 18 mg/dL (7-18); BUN/Creat Ratio 21.6 RATIO (10-20); Calcium,Total 8.8 mg/dL (8.5-10.1); Chloride 107 mmol/L (98-107); Creatinine, Serum 0.84 mg/dL (0.70-1.30); EST Glomerular Filtration Rate 101 mL/min (>60); Est Glom Filt Rate - Afr Amer 123 mL/min (>60); Estimated Creatinine Clearance 96.13 ml/min; Glucose 130 mg/dL (74-106); Potassium 4.2 mmol/L (3.5-5.1); Sodium Level 143 mmol/L (136-145)
[2018-06-05] MEDS: Acetaminophen 500 MG Tablet PO (12:22)
[2018-06-05] MEDS: oxyCODONE 5 MG Tablet PO (12:22)
[2018-06-05 14:17] LABS: Absolute Lymphocyte Count 2.32 X10^3/ul (0.83-4.51); Absolute Neutrophil Count 3.4 X10^3/uL (2.0-7.7); Basophil# 0.02 X10^3/uL; Basophil% 0.3 % (0-1); Eosinophil# 0.12 X10^3/uL; Eosinophils% 1.9 % (0-5); Hematocrit 45.9 % (40-54); Hemoglobin 14.9 g/dl (13.0-16.5); Lymphocyte # 2.32 X10^3/ul (4.0); Lymphocyte % 36.9 % (19-41); Mean Corp Hgb Conc 32.5 g/gl (32-36); Mean Corpuscular Volume 89.5 fL (80-94); Mean Platelet Vol. 10.9 fl (6.2-12.0); Monocyte# 0.43 X10^3/uL; Monocyte% 6.8 % (0-10); Neutrophil # 3.38 X10^3/uL (2.7-7.7); Neutrophil % 53.8 % (47-70); Platelet Count 244 K/mm3 (150-450); RBC Distribution Width CV 13.3 % (11.6-14.6); RBC Distribution Width SD 43.1 fl (35.1-43.9); Red Blood Count 5.13 M/mm3 (4.6-6.2); White Blood Count 6.3 K/mm3 (4.4-11.0)
[2018-06-05 14:20] LABS: POSITIVE COUNT NO; POSITIVE DIFFERENTIAL NO; POSITIVE MORPHOLOGY NO
== END 2018-06-05 12:45 | disposition home or self-care (01) | DRG 948 ==
LOC: ED 20:38 → PCU 23:19
PROVIDERS: Psychiatry & Neurology Neurology; Admitting Provider Hospitalist; Emergency Provider Emergency Medicine; Visit Provider Internal Medicine
DX: R53.1 Weakness (principal); R53.81 Other malaise; M79.1 Myalgia; M48.02 Spinal stenosis, cervical region
CPT/HCPCS: 36415; 62270; 70470; 70553; 71045; 72148; 72156; 77003; 80048; 80076; 80307; 81001; 82550; 82945; 83605; 84157; 84439; 84443; 84481; 84484; 85025; 85027; 85610; 85652; 85730; 86038; 86141; 86225; 86235; 86592; 86618; 87040; 87070; 87101; 87205; 87496; 87498; 87529; 87633; 87798; 87899; 88108; 88313; 89050; 89051; 93005; 94150; 95831; 95913; 97110; 97116; 97162; 97166; 97530; 99251; 99282; A9585; J7030; Q9967; A4216; G0463; J2405

== ENCOUNTER 2018-08-01 08:46 | Outpatient (RCR) | payer OTHER, SELFPAY ==
--- NOTE | 2018-08-01 11:31 | HP.PTEVAL_ITS ---
Patient's Visit Information KRYSTINA WOODS is a 57 year old M referred to Physical Therapy by Gale Norris MD with a diagnosis of SYMPTOMS AND SIGNS INVOLVING THE MUSCKOSKELETAL SYSTEM. Date of Evaluation: 08/01/18 Physical Therapist: Sumit Garcia PT, - Visit Plan Frequency: 2x /Week Duration: 6 Weeks Plan: grade BLE PRE'S quads/hams/,NUSTEP ,balance program,gait training - Subjective Subjective: This 57 y/o male presentys to physical therapy with lower exremity muscle weakenss. Patient unable to walk at home ,thus patient was admitted at hospital . Patient had multiple diagnostics include CATSCAN ,MRI,spinal tap,blood work ,seen neurologist . Patnet d/c from hospital with etiology unnkown. Patient d/c on 07/06 with fww. Patient seen DR durand PMR ,myositis. Prior level of function Independant with ADL'S no device with gait.Patient taking predsone prescribed from MD. Patient working in [employer]. Patient current condition impairs QOL ,function and ADL'S ,housework tasks and needs FW W. Denies parathesia/tingling.HOME SITUATION: 1 story home with 3 steps with rail. SOCAIL: single. VOCATION: mainitance - Pain Bilateral Lower Extremity Pain Intensity (Out of 10): 5 Pain Intensity Range: 10 - Objective POSTURE: mild foward posture. GAIT: mild foward posture slow rina reciprocal pattern. NEURO: denies parathesia,reflexes L3-4,L4-5,L5-S1 3/3. MMT: quads/hams/hip flexion 3+/5,ankle 4/5 ,hip abd 3/5. BALANCE: fair with fww. FLXABLITY: hams mod tight. STAIRS: one steps at time with rail. PROPRIOCEPTION: poor - Balance Scores CATSIB Score (Max score 120 seconds): 10 - Goals Goal 1:: Independant with HEP Goal Time Frame: 4-6 Weeks Goal 2:: Pateint ambualte with least restrictive device community distances Goal Time Frame: 4-6 Weeks Goal 3:: Patient improve balance to improve balance to fair+ with appropriate device Goal Time Frame: 4-6 Weeks Goal 4:: Patient improve BLE to 4-/5 to improve function with ADL'S and gait. Goal Time Frame: 4-6 Weeks Goal 5:: Patient to ablity to return housework tasks and ADL'S with mi limiations Goal Time Frame: 4-6 Weeks - Rehabilitation Potential Physical Therapy Diagnosis: This 57 y/o male presents to physical therapy with weakness in legs with etiology unkown. Patient had multiple dfiagnostic testing results negative. Patient has impairments with weaknses in legs ,balance deficits,decrease gait needing FFW, Rehabilitation Potential: Good - Anticipated Interventions Patient/Client Instruction: Educate patient on: Condition, Plan of Care For the Purpose of:: To decrease pain, To improve muscle performance and motor function, To improve ability to perform ADL's, To increase tolerance to activity/condition/position, To improve performance and independence with ADL's, To improve ability of physical actions for home/community/work/leisure, To improve gait and locomotor functions, To improve endurance, To improve balance, To improve safety with gait, To improve ability to perform tasks related to life management Therapeutic Exercise to Include: Strength training, Power training, Endurance training, Balance training, Gait and locomotor training Comment: BLE For the Purpose of:: To decrease pain, To improve muscle performance and motor function, To improve ability to perform ADL's, To increase tolerance to activity/condition/position, To improve ability of physical actions for home/community/work/leisure, To improve gait and locomotor functions, To improve endurance, To improve balance, To improve safety with gait, To improve ability to perform tasks related to life management Thank you for the opportunity to evaluate your patient. For Medicare and Medicare HMO plans, please review the plan of care and approve it. It will need to be FAXED BACK to us at [phone] for Medicare purposes. Please let me know if there are questions or concerns regarding this plan of care. Physician Signature: ____Date:
--- NOTE | 2018-09-29 13:58 | HP.PT.NRP ---
HP - Discharge Summary (1) - Patient Information KRYSTINA WOODS was seen in my office for initial evaluation on 08/01/18. The following Plan of Care was established for this patient: Initial Frequency: 2x /Week Initial Duration: 6 Weeks - Anticipated Interventions Patient/Client Instruction: Educate patient on: Condition, Plan of Care For the Purpose of:: To decrease pain, To improve muscle performance and motor function, To improve ability to perform ADL's, To increase tolerance to activity/condition/position, To improve performance and independence with ADL's, To improve ability of physical actions for home/community/work/leisure, To improve gait and locomotor functions, To improve endurance, To improve balance, To improve safety with gait, To improve ability to perform tasks related to life management Therapeutic Exercise to Include: Strength training, Power training, Endurance training, Balance training, Gait and locomotor training For the Purpose of:: To decrease pain, To improve muscle performance and motor function, To improve ability to perform ADL's, To increase tolerance to activity/condition/position, To improve ability of physical actions for home/community/work/leisure, To improve gait and locomotor functions, To improve endurance, To improve balance, To improve safety with gait, To improve ability to perform tasks related to life management This patient was last seen in our office . Pertinent comments regarding their Physical therapy will appear below: Patient seen for Intial Evaluation only At this point I will be discontinuing this patient from physical therapy. I would be happy to see this patient again in the future if found appropriate by the physician. Thank you! Sumit Garcia, PT,
== END 2018-08-01 19:00 | disposition home or self-care (01) ==
LOC: PT 08:46
PROVIDERS: Family Provider Internal Medicine; PCP Internal Medicine; Referring Provider Internal Medicine; Visit Provider Internal Medicine
DX: R29.898 Other symptoms and signs involving the musculoskeletal system (principal)
CPT/HCPCS: 97110; 97163

== ENCOUNTER → 2018-09-17 12:18 | Outpatient (CLI) | payer OTHER, SELFPAY ==
[2018-08-29 09:02] VITALS: BMI 33.9
[2018-09-17 13:58] LABS: Anion Gap 5 (5-15); BUN 15 mg/dL (7-18); BUN/Creat Ratio 16.6 RATIO (10-20); Calcium,Total 9.1 mg/dL (8.5-10.1); Chloride 105 mmol/L (98-107); Creatinine, Serum 0.91 mg/dL (0.70-1.30); EST Glomerular Filtration Rate 92 mL/min (>60); Est Glom Filt Rate - Afr Amer 111 mL/min (>60); Glucose 88 mg/dL (74-106); Sodium Level 139 mmol/L (136-145)
--- OUTSIDE RECORDS SUMMARY | 2018-11-12 21:29 | XMS RPT_ITS ---
:1960 Author Organization [place] Support Name Relationship Address Phone YVAN BYRNE Unavailable [address] + [address] [place] [address] LORENZA TO Unavailable [address] + [address] [place] [address] [employer] Unavailable [address] + [place] [address] [employer] Unavailable [address] + [place] [address] [employer] Unavailable [address] + [place] [address] [employer] Unavailable . +. hallie KRAMER [address] [employer] Unavailable . +. [place] [address] [employer] Unavailable . +. hallie KRAMER [address] FRUM, FOZIA Unavailable [address] + [address] [place] [address] [employer] Unavailable . +. [place] [address] FRUM, FOZIA Unavailable [address] + [address] [place] [address] [employer] Unavailable . +. [place] [address] FRUM, FOZIA Unavailable [address] + [address] [place] [address] [employer] Unavailable . +. [place] [address] FRUM, FOZIA Unavailable [address] + [address] [place] [address] [employer] Unavailable . +. hallie KRAMER [address] FRUM, FOZIA Unavailable [address] + [address] [place] [address] [employer] Unavailable . +. [place] [address] FOZIA COYNE Unavailable [address] + [address] [place] [address] [employer] Unavailable . +. [place] [address] Care Team Providers Name Role Phone Primay Care Physicia, No Primary Care Unavailable Agyepong, Maycol Admitting Unavailable Benjy, He Consulting Unavailable Paintsil, [place] Attending Unavailable Agyepong, Maycol Admitting Unavailable Agyepong, Maycol Attending Unavailable Primay Care Physicia, No Primary Care Unavailable Benjy, He Consulting Unavailable Agyepong, Maycol Consulting Unavailable Agyepong, Maycol Admitting Unavailable Jopperi, Pete Attending Unavailable Primay Care Physicia, No Primary Care Unavailable Burleson, He Consulting Unavailable Jopperi, Pete Consulting Unavailable Agyepong, Maycol Admitting Unavailable Jopperi, Pete Attending Unavailable Primay Care Physicia, No Primary Care Unavailable Burleson, He Consulting Unavailable Jopperi, Pete Consulting Unavailable Agyepong, Maycol Admitting Unavailable [place]sil, [place] Attending Unavailable Primay Care Physicia, No Primary Care Unavailable Burleson, He Consulting Unavailable Paintsil, [place] Consulting Unavailable Agyepong, Maycol Admitting Unavailable Paintsil, [place] Attending Unavailable Primay Care Physicia, No Primary Care Unavailable Burleson, He Consulting Unavailable Paintsil, [place] Consulting Unavailable Oleghe, [place] Attending Unavailable Primay Care Physicia, No Referring Unavailable Primay Care Physicia, No Primary Care Unavailable Oleghe, [place] Attending Unavailable Oleghe, [place] Referring Unavailable Oleghe, [place] Attending Unavailable Oleghe, [place] Referring Unavailable Oleghe, [place] Primary Care Unavailable Oleghe, [place] Attending Unavailable Oleghe, [place] Referring Unavailable Oleghe, [place] Attending Unavailable Oleghe, [place] Referring Unavailable Oleghe, [place]few[place] Primary Care Unavailable PROBLEMS PROBLEMS DATE TYPE CONDITION / CODE ATTENDING STATUS SOURCE 08/29/2018 Unknown I10 - Essential Oleghe, Active [place] (primary) [place] [facility] hypertension / [facility] I10(ICD-10) Repository 10/01/2018 Unknown R29.898 - Other Oleghe, Active [place] symptoms and signs [facility] the [facility] musculoskeletal Repository system / R29.898(ICD-10) 06/09/2018 Unknown R53.1 - Weakness / [place]sil, [place] Active [place] R53.1(ICD-10) [facility] Repository PROCEDURES PROCEDURES No Procedure Records FoundRESULTS RESULTS BASIC METABOLIC Collected: 09/17/2018 Status: F Source: [facility] PROFILE (BMP) 12:28 PM [facility] REPOSITORY TYPE CODE TESTS RESULT OUT OF RANGE REFERENCE UNITS LAB L501.0100 74-106 mg/dL Normal GLU 88 Result Comment: Please note revised GLUCOSE reference range effective 2017. LAB L501.1000 7-18 mg/dL Normal BUN 15 LAB L501.1100 0.70-1.30 mg/dL Normal CREAT,SERUM 0.91 Result Comment: The validity of the calculated GFR AND GFRAA in patients over 70 years has not been determined. Clinical correlation is essential. LAB L501.1110 >60 mL/min Normal EST GFR 92 Result Comment: Non- GFR Calc LAB L501.1115 >60 mL/min Normal EST GFR - AA 111 Result Comment: GFR Calc LAB L501.1300 10-20 RATIO Normal BUN/CRE 16.6 LAB L501.2200 8.5-10.1 mg/dL CA Normal 9.1 LAB L501.5300 136-145 mmol/L NA Normal 139 LAB L501.5600 3.5-5.1 mmol/L K Normal 4.0 LAB L501.5900 98-107 mmol/L CL Normal 105 LAB L501.6100 21.0-32.0 mmol/L Normal CO2 29.0 LAB L501.6200 5-15 Normal GAP 5 Performed By: #### L500.2500 #### [facility] [address] [place], [address] INTERNAL MEDICINE Observed: 09/01/2018 Status: F Source: [facility] OFFICE VISIT 4:29 PM [facility] REPOSITORY [facility] [address] [place] [address] [place] [address] OFFICE VISIT Date of Service: 08/29/18 MR#: [id number] Acct: [id number] Name: KRYSTINA SYLVESTER Rep #: [id number] : 1960 Provider: Gale Norris MD Age/Sex: 58/M [place] [facility] Status: Signed Intake Vital Signs08/29/18 Height 5 ft 8 in Intake Visit Reasons: 1 MO F/U Chief Complaint: 1 MO FU Is patient in pain?: Yes (left leg) Pain scale (1-10): 5 Allergies No Known Allergies Allergy (Verified 07/25/18 09:48) Medications acetaminophen 325 mg capsule 325 mg PO Q6H PRN 06/20/18 [History Confirmed 07/25/18] ibuprofen 200 mg tablet 200 mg PO TID-QID PRN 06/20/18 [History Confirmed 07/25/18] prednisone 20 mg tablet 20 mg PO DAILY #30 tab 06/20/18 [Rx Confirmed 07/25/18] blood pressure monitor kit See Dose Instructions .ROUTE .MEDSUPPLY #1 ea 08/29/18 [Rx Confirmed 08/29/18] hydrochlorothiazide 25 mg tablet 12.5 mg PO DAILY #30 tab 08/29/18 [Rx Confirmed 08/29/18] PFSH Medical History Chronic headaches (Chronic) HTN (hypertension) (Chronic) Family History Mother Anemia Psychiatric care Respiratory disease CVA (cerebral vascular accident) Angina pectoris Anxiety Arthritis Blood clot in vein Hypertension High cholesterol Kidney disease Osteoporosis Sister Asthma Arthritis Lupus Severe allergy Grandfather Arthritis Colon cancer Myocardial infarction Heart disease Hypertension Brother Psychiatric care Seizures Suicide attempt Aunt History of ulcer disease Social History Smoking Status: Former smoker alcohol intake: never substance use type: does not use what type of physical activity do you participate in: none HPI HPI Chief Complaint: 1 MO FU Details: KRYSTINA SYLVESTER, is a 58yo M who presents to the office today for follow-up of his lower extremity weakness. Is currently being managed as a case of possible myositis and has been on prednisone. Symptoms have significantly improved. Also currently going through physical therapy and is doing well so far. Currently walks around with a walker however does not appear that he really needs this. He has had no falls. He also denies any bowel or bladder incontinence. Blood pressure remains elevated. It has been persistently increasing however, patient had been initially unwilling to start on any medication. Now open. ROS Const Constitutional: No weight change, body ache, chills, fatigue, sleep problems, fever(s), change in appetite, snoring, weakness, frequent falls, headache(s) or excessive sweating Eyes Eyes: Positive for blurry vision; no change in vision, eye pain or light sensitivity ENT ENT: No headache(s), abnormal hearing, ear pain, tinnitus, nasal congestion, sore throat or neck pain Resp Respiratory: No snoring, cough, shortness of breath or wheezing Cardio Cardiology: No excessive sweating, chest pain at rest, chest pain with exertion, shortness of breath, dyspnea on exertion, palpitations, orthopnea or lightheadedness Gastro GI: No abdominal pain, change in bowel habits, constipation, diarrhea, vomiting, nausea/dyspepsia or cramping Genitourinary Male: No painful urination, urinary incontinence, urinary frequency, urinary urgency, blood in urine, testicle pain or other Musc Musculoskeletal: No neck pain, abnormal walking, joint pain, back pain or limited range of motion Skin Skin: No redness, dry skin, itching, lesions, wounds or rash Neuro Neurology: No weakness, frequent falls, headache(s), abnormal hearing, abnormal walking, abnormal speech, dizziness or memory loss Psych Psychiatric: No change in appetite, No memory loss, No anxiety, No depression, No Thoughts of harming yourself/Others Endo Endocrine: No fatigue, excessive sweating, cold intolerance, increased thirst/drinking, heat intolerance, flushing or increased hunger Aller/Imm Allergy/Immunologic: No wheezing, itchy eyes, hives or seasonal allergy symptoms Lenny/Lymp Hematologic/Lymphatic: No easy bleeding, easy bruising or enlarged lymph nodes Exam Const General: cooperative, no acute distress Orientation: alert, awake, oriented x3 HENMT Head: atraumatic, normocephalic, normal to inspection Ears: hearing grossly normal bilaterally Resp Effort AND Inspection: normal respiratory effort, able to speak in complete sentences Auscultation: Bilateral: Clear to Auscultation Cardio Rate: regular rate Rhythm: regular rhythm Heart Sounds: S1 normal, S2 normal GI Palpation: soft, no hepatosplenomegaly Musc Other: Neuro General: alert, awake, oriented x3, moves all extremities, CN's II-XI intact bilaterally Other: Psych Appearance: grossly normal Mood: congruent mood Affect: normal affect Assessment AND Plan 1. Lower extremity weakness R29.898 Plan Being managed as a case of myositis. Mildly elevated CRP and ESR during his hospital visit. Imaging with no significant concerns including an MRI of the spine. Currently in physical therapy and doing well. Has been on 2 months of prednisone. Continue for 1 more month then begin taper. He walks around with a walker however it is obvious he does not necessarily need this probably more fear than weakness right now. Advised to transition to a cane (tripod ). Advised to call with any concerns. 2. HTN (hypertension) I10 Plan Has been persistently rising. Patient initially unwilling to start however now open to go on pharmacological management. Will start with hydrochlorothiazide. Start at 12.5 mg daily. Check blood pressure daily if blood pressure still over 150/90 mmHg, increase to 25 mg daily. Lifestyle and dietary modifications encouraged. BMP in 2 weeks. Follow-up in 6 weeks. This note was generated with [employer] dictation software. It may contain incorrect words, spelling, and punctuation that were not noted in checking the note before signing. Orders Orders: Plan Detail Other Medications New: Coding Level of Care Code Off vis,est,level 4 Diagnoses Lower extremity weakness R29.898 HTN (hypertension) I10 09/01/18 7564 <Electronically signed by Gale Norris MD> Date Gale Norris MD Cosigner Signature: Date (if applicable) CC: INITAL EVALUATION (1) Observed: 08/01/2018 Status: F Source: [facility] - PT 4:58 PM [facility] REPOSITORY [facility] [address] [place] [address]. [address] [place] [address] Fax REHABILITATION SERVICES INITIAL EVALUATION MR#: [id number] Acct: [id number] Name: KRYSTINA SYLVESTER Rep #: [id number] : 1960 57 From: Sumit Garcia PT, Cert. MDT, OCS Referring DrDaria: Gale Norris MD Status: REG R Insurance: [facility] Navigating Cancer PAY INSURANCE Patient's Visit Information KRYSTINA SYLVESTER is a 57 year old M referred to Physical Therapy by Gale Norris MD with a diagnosis of SYMPTOMS AND SIGNS INVOLVING THE MUSCKOSKELETAL SYSTEM. Date of Evaluation: 08/01/18 Physical Therapist: Sumit Garcia PT, - Visit Plan Frequency: 2x /Week Duration: 6 Weeks Plan: grade BLE PRE'S quads/hams/,NUSTEP ,balance program,gait training - Subjective Subjective: This 57 y/o male presentys to physical therapy with lower exremity muscle weakenss. Patient unable to walk at home ,thus patient was admitted at hospital . Patient had multiple diagnostics include CATSCAN ,MRI,spinal tap,blood work ,seen neurologist . Patnet d/c from hospital with etiology unnkown. Patient d/c on 07/06 with fww. Patient seen DR durand PMR ,myositis. Prior level of function Independant with ADL'S no device with gait.Patient taking predsone prescribed from MD. Patient working in [employer]. Patient current condition impairs QOL ,function and ADL'S ,housework tasks and needs FWW. Denies parathesia/tingling.HOME SITUATION: 1 story home with 3 steps with rail. SOCAIL: single. VOCATION: mainitance - Pain Bilateral Lower Extremity Pain Intensity (Out of 10): 5 Pain Intensity Range: 10 - Objective POSTURE: mild foward posture. GAIT: mild foward posture slow rina reciprocal pattern. NEURO: denies parathesia,reflexes L3-4,L4-5,L5-S1 3/3. MMT: quads/hams/hip flexion 3+/5,ankle 4/5 ,hip abd 3/5. BALANCE: fair with fww. FLXABLITY: hams mod tight. STAIRS: one steps at time with rail. PROPRIOCEPTION: poor - Balance Scores CATSIB Score (Max score 120 seconds): 10 - Goals Goal 1:: Independant with HEP Goal Time Frame: 4-6 Weeks Goal 2:: Pateint ambualte with least restrictive device community distances Goal Time Frame: 4-6 Weeks Goal 3:: Patient improve balance to improve balance to fair+ with appropriate device Goal Time Frame: 4-6 Weeks Goal 4:: Patient improve BLE to 4-/5 to improve function with ADL'S and gait. Goal Time Frame: 4-6 Weeks Goal 5:: Patient to ablity to return housework tasks and ADL'S with mi limiations Goal Time Frame: 4-6 Weeks - Rehabilitation Potential Physical Therapy Diagnosis: This 57 y/o male presents to physical therapy with weakness in legs with etiology unkown. Patient had multiple dfiagnostic testing results negative. Patient has impairments with weaknses in legs ,balance deficits,decrease gait needing FFW, Rehabilitation Potential: Good - Anticipated Interventions Patient/Client Instruction: Educate patient on: Condition, Plan of Care For the Purpose of:: To decrease pain, To improve muscle performance and motor function, To improve ability to perform ADL's, To increase tolerance to activity/condition/position, To improve performance and independence with ADL's, To improve ability of physical actions for home/community/work/leisure, To improve gait and locomotor functions, To improve endurance, To improve balance, To improve safety with gait, To improve ability to perform tasks related to life management Therapeutic Exercise to Include: Strength training, Power training, Endurance training, Balance training, Gait and locomotor training Comment: BLE For the Purpose of:: To decrease pain, To improve muscle performance and motor function, To improve ability to perform ADL's, To increase tolerance to activity/condition/position, To improve ability of physical actions for home/community/work/leisure, To improve gait and locomotor functions, To improve endurance, To improve balance, To improve safety with gait, To improve ability to perform tasks related to life management Thank you for the opportunity to evaluate your patient. For Medicare and Medicare HMO plans, please review the plan of care and approve it. It will need to be FAXED BACK to us at [phone] for Medicare purposes. Please let me know if there are questions or concerns regarding this plan of care. Physician Signature: Date: <Electronically signed by Sumit Garcia PT, Cert. T, OCS> 08/01/18 1658 CC: Gale Norris MD JLA Signed For Medicare only, by signing this I certify the plan of care. Physicians Signature Date INTERNAL MEDICINE Observed: 07/29/2018 Status: F Source: [facility] OFFICE VISIT 12:12 PM [facility] [address] [place] [address] [address] [place] [address] OFFICE VISIT Date of Service: 07/25/18 MR#: [id number] Acct: [id number] Name: KRYSTINA SYLVESTER Rep #: [id number] : 1960 Provider: Gale Norris MD Age/Sex: 57/M [place] [facility] Status: Signed Intake Vital Signs07/25/18 Height 5 ft 8 in 07/25/18 Weight: 224 lb 07/25/18 Body Mass Index (BMI) 34.0 07/25/18 Blood Pressure 149/94 H 07/25/18 Blood Pressure Location Rt brachial Intake Visit Reasons: 1 M FU Chief Complaint: 1 MO FU Is patient in pain?: Yes (Left leg ) Pain scale (1-10): 4 Allergies No Known Allergies Allergy (Verified 07/25/18 09:48) Medications acetaminophen 325 mg capsule 325 mg PO Q6H PRN 06/20/18 [History Confirmed 07/25/18] ibuprofen 200 mg tablet 200 mg PO TID-QID PRN 06/20/18 [History Confirmed 07/25/18] prednisone 20 mg tablet 20 mg PO DAILY #30 tab 06/20/18 [Rx Confirmed 07/25/18] PFSH Medical History Chronic headaches (Chronic) HTN (hypertension) (Chronic) Family History Mother Anemia Psychiatric care Respiratory disease CVA (cerebral vascular accident) Angina pectoris Anxiety Arthritis Blood clot in vein Hypertension High cholesterol Kidney disease Osteoporosis Sister Asthma Arthritis Lupus Severe allergy Grandfather Arthritis Colon cancer Myocardial infarction Heart disease Hypertension Brother Psychiatric care Seizures Suicide attempt Aunt History of ulcer disease Social History Smoking Status: Former smoker alcohol intake: never substance use type: does not use what type of physical activity do you participate in: none HPI HPI Chief Complaint: 1 MO FU Details: KRYSTINA SYLVESTER, is a 57 M who presents to the office today for follow-up of his lower extremity weakness. He states that he has noted some improvement since his last visit. Has been on 20 mg of prednisone for about a month and is being managed for possible myositis. He is yet to follow-up with physical therapy. Blood pressures again noted to be elevated. For the most part he has been more sedentary and his diet has has been high in sodium and carbs. ROS Const Constitutional: No chills, fatigue, fever(s), frequent falls, malaise, weakness, sleep problems or change in appetite Eyes Eyes: No blurry vision, change in vision, double vision, discharge or visual disturbances ENT ENT: No abnormal hearing, ear pain, ear pressure, tinnitus or dizziness/vertigo Resp Respiratory: No cough, shortness of breath or wheezing Cardio Cardiology: No chest pain at rest, chest pain with exertion, shortness of breath, dyspnea on exertion, generalized swelling, irregular heart rhythm, lightheadedness, orthopnea, fast heart rate or palpitations Gastro GI: No abdominal pain, change in bowel habits, constipation, diarrhea, nausea/dyspepsia or vomiting Genitourinary Male: No difficulty urinating, burning urination, painful urination, urinary incontinence, urinary frequency, urinary urgency, urinary hesitancy, urinary retention, blood in urine, Frequent nighttime urination/ nocturia, sexual problems, testicle lump or testicle pain Musc Musculoskeletal: Positive for abnormal walking (with walker) and muscle weakness; no back pain, joint swelling, limited range of motion, numbness or tingling Skin Skin: No change in skin color, itching, rash or wounds Breast Breast: No breast lump or breast pain Neuro Neurology: Positive for abnormal walking (with walker); no frequent falls, weakness, abnormal hearing, numbness, tingling, unsteady gait/balance, dizziness, loss of vision, memory loss or visual disturbances Psych Psychiatric: No memory loss, No anxiety, No change in appetite, No depression, No Thoughts of harming yourself/Others Endo Endocrine: No fatigue, heat intolerance, increased thirst/drinking, increased hunger or increased urination Aller/Imm Allergy/Immunologic: No wheezing, itchy eyes or seasonal allergy symptoms Lenny/Lymp Hematologic/Lymphatic: No easy bleeding, easy bruising or enlarged lymph nodes Exam Const General: cooperative, no acute distress Orientation: alert, awake, oriented x3 HENMT Head: atraumatic, normocephalic, normal to inspection Ears: hearing grossly normal bilaterally Resp Effort AND Inspection: normal respiratory effort, able to speak in complete sentences Auscultation: Bilateral: Clear to Auscultation Cardio Rate: regular rate Rhythm: regular rhythm Heart Sounds: S1 normal, S2 normal GI Palpation: soft, no hepatosplenomegaly Musc Musculoskeletal: Yes muscle weakness Other: Significant tenderness to palpation of his thigh muscles. Neuro General: alert, awake, oriented x3, moves all extremities, CN's II-XI intact bilaterally Other: Psych Appearance: grossly normal Mood: congruent mood Affect: normal affect Assessment AND Plan 1. Lower extremity weakness R29.898 Plan Improving. Consideration at this point is for possible myositis. ESR and CRP elevated during his last hospital stay. He however is yet to start physical therapy. Continue prednisone for 2 more months and then begin taper. Strongly advised to follow-up with physical therapy. Follow-up in 1 month. Will extend his FMLA until next visit. Orders Orders: 2. HTN (hypertension) I10 Plan Worsening. Patient is sedentary for the most part and has been made very healthy choices with his diet. Lifestyle/dietary modifications advised. Blood pressure log. Follow-up in 1 month. This note was generated with [employer] software. It may contain incorrect words, spelling, and punctuation that were not noted in checking the note before signing. Coding Level of Care Code Off vis,est,level 4 Diagnoses Lower extremity weakness R29.898 HTN (hypertension) I10 07/29/18 1212 <Electronically signed by Gale Norris MD> Date Gale Norris MD Cosigner Signature: Date (if applicable) CC: INTERNAL MEDICINE Observed: 06/24/2018 Status: F Source: [facility] OFFICE VISIT 3:38 PM [facility] [place] [address] [place] [address] OFFICE VISIT Date of Service: 06/20/18 MR#: [id number] Acct: [id number] Name: KRYSTINA SYLVESTER [place] Rep #: [id number] : 1960 Provider: Gale Norris MD Age/Sex: 57/M Location[place] [facility] Status: Signed Intake Vital Signs06/20/18 Height 5 ft 8 in 06/20/18 Weight: 217 lb 06/20/18 Body Mass Index (BMI) 33.0 06/20/18 Blood Pressure 141/93 Intake Visit Reasons: EST CARE, S/P HOSP Chief Complaint: Est Care, Post Hosp - [facility] Is patient in pain?: Yes (Legs) Pain scale (1-10): 8 Allergies No Known Allergies Allergy (Verified 06/20/18 14:46) Medications acetaminophen 325 mg capsule 325 mg PO Q6H PRN 06/20/18 [History Confirmed 06/20/18] ibuprofen 200 mg tablet 200 mg PO TID-QID PRN 06/20/18 [History Confirmed 06/20/18] prednisone 20 mg tablet 20 mg PO DAILY #30 tab 06/20/18 [Rx Confirmed 06/20/18] PFSH Medical History Chronic headaches (Chronic) HTN (hypertension) (Chronic) Family History Mother Anemia Psychiatric care Respiratory disease CVA (cerebral vascular accident) Angina pectoris Anxiety Arthritis Blood clot in vein Hypertension High cholesterol Kidney disease Osteoporosis Sister Asthma Arthritis Lupus Severe allergy Grandfather Arthritis Colon cancer Myocardial infarction Heart disease Hypertension Brother Psychiatric care Seizures Suicide attempt Aunt History of ulcer disease Social History Smoking Status: Former smoker alcohol intake: never substance use type: does not use what type of physical activity do you participate in: none HPI HPI Chief Complaint: Est Care, Post Hosp - [facility] Details: KRYSTINA SYLVESTER, is a 57yo M who presents to the office today for follow-up of recent hospital admission where he was managed for bilateral lower extremity weakness. He reports sudden onset bilateral thigh pain and lower extremity weakness. He was in a stable state of health prior to this episode and only noted self- limited bilateral shoulder pain. He denies any prior history of similar events. There has been no change in his bowel or bladder habits. There is a positive family history of autoimmune disease. Since hospital discharge he is noted persistent pain of his bilateral lower extremities/thigh with some episodes of his legs giving out on him. He denies any otherwise feeling of unwell. ROS Const Constitutional: Positive for fatigue and weakness; no chills, fever(s), frequent falls, malaise, sleep problems or change in appetite Eyes Eyes: No change in vision, double vision, discharge or visual disturbances ENT ENT: No abnormal hearing, ear pain, ear pressure, tinnitus or dizziness/vertigo Resp Respiratory: No cough, shortness of breath or wheezing Cardio Cardiology: No chest pain at rest, chest pain with exertion, shortness of breath, dyspnea on exertion, generalized swelling, irregular heart rhythm, lightheadedness, orthopnea, fast heart rate or palpitations Gastro GI: No abdominal pain, change in bowel habits, constipation, diarrhea, nausea/dyspepsia or vomiting Genitourinary Male: No difficulty urinating, burning urination, painful urination, urinary incontinence, urinary frequency, urinary urgency, urinary hesitancy, urinary retention, blood in urine, Frequent nighttime urination/ nocturia, sexual problems, testicle lump or testicle pain Musc Musculoskeletal: Positive for joint pain, back pain, joint swelling, muscle weakness, numbness (legs), tingling (legs), muscle cramps, stiffness and other (Restless legs); no limited range of motion Skin Skin: No change in skin color, itching, rash or wounds Breast Breast: No breast lump or breast pain Neuro Neurology: Positive for weakness, numbness (legs), tingling (legs), unsteady gait/balance and restless legs; no frequent falls, abnormal hearing, dizziness, loss of vision, memory loss or visual disturbances Psych Psychiatric: No memory loss, No change in appetite, No Thoughts of harming yourself/Others Endo Endocrine: Positive for fatigue; no heat intolerance, increased thirst/drinking, increased hunger or increased urination Aller/Imm Allergy/Immunologic: No wheezing, itchy eyes or seasonal allergy symptoms Lenny/Lymp Hematologic/Lymphatic: No easy bleeding, easy bruising or enlarged lymph nodes Exam Const General: cooperative, no acute distress Orientation: alert, awake, oriented x3 HENMT Head: atraumatic, normocephalic, normal to inspection Ears: hearing grossly normal bilaterally Resp Effort AND Inspection: normal respiratory effort, able to speak in complete sentences Auscultation: Bilateral: Clear to Auscultation Cardio Rate: regular rate Rhythm: regular rhythm Heart Sounds: S1 normal, S2 normal GI Palpation: soft, no hepatosplenomegaly Musc Musculoskeletal: Yes muscle weakness Other: Significant tenderness to palpation of his thigh muscles. Neuro General: alert, awake, oriented x3 Other: Significant weakness of all muscle groups of his lower extremity however worse on the left. Psych Appearance: grossly normal Mood: congruent mood Affect: normal affect Assessment AND Plan 1. Lower extremity weakness R29.898 Plan Associated with myalgia. Significant tenderness on examination. Investigations done during his hospital stay with only mildly elevated ESR and CRP otherwise no significant concerns. Possibly myositis ??? Polymyalgia rheumatica. We will start on prednisone 20 mg daily. Referred to physical therapy. Orders Referrals: 2. HTN (hypertension) I10 Plan Blood pressure elevated at 141/93 mmHg. Lifestyle/dietary modifications recommended for now. Follow-up at next visit. This note was generated with [employer] dictation software. It may contain incorrect words, spelling, and punctuation that were not noted in checking the note before signing. Plan Detail Other Medications New: Coding Level of Care Code Off vis,est,level 4 Diagnoses Lower extremity weakness R29.898 HTN (hypertension) I10 06/24/18 1538 <Electronically signed by Gale Norris MD> Date Gale Sanches Signature: Date (if applicable) CC: CONSULTATION Observed: 06/15/2018 Status: F Source: [place] 3:56 PM [facility] REPOSITORY [facility] Medical Records Department [address] [place] [address] Consultation 06/02/18 1350 MR#: [id number] Acct: [id number] Name: KRYSTINA SYLVESTER Rep #: [id number] : 1960 57 From: Kelsey Turner MD PCP: Care Physician, No Primary Status: DIS IN Y Location: [place] [address] Problem List (1) Generalized weakness Status: Acute Reason for Consult Date of Consultation: 06/02/18 Reason for Consultation: generalized weakness and pain History of Present Illness: The patient is a 57 year old CM with PMH HTN (not on medications- per patient he does not visit physicians regularly), EVY not on CPAP admitted with generalized weakness, and pain. 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 Does not use cane or walker to ambulate, denies any falls, denies any sick contacts, denies any rash, tick bite, denies any history of respiratory infection or diarrhea recently. At present denies any BATISTA, visual disturbances, speech disturbances, focal motor weakness or sensory loss. ED documented ascending weakness but there is no ascending weakness per patient's clinical history, even though had normal reflexes in the ED still it was felt to be GBS by ED physician and LP was attempted which failed and he is due to undergo LP under fluoroscopy guidance soon. Per documentation he denied any SOB at rest but may have some breathing issues on moving. But he denies any SOB at present.He does complaint of neck pain and lower back pain with radicular symptoms, denies any urinary retention or incontinence. [] Past Medical History Medical History: Medical History (Last Updated 06/01/18 @ 23:14 by Maycol Lara MD) HTN (hypertension) I10 Allergies No Known Allergies Allergy (Verified 06/01/18 19:30) Home Medications: Ambulatory Orders Medication Instructions Recorded NK [NK] 06/01/18 Surgical History: - - Left hand surgery Psychiatric History: Anxiety, Post traumatic stress Lives: Roommate Smoking Status: Former smoker Tobacco Use: Chew Alcohol: None Drugs: None - *Family History Maternal History Items: Diabetes, Hypertension, Renal Disease, Stroke, - - stroke in mother Paternal History Items: No pertinent history Review of Systems Constitutional: Reports: - - complete ROS negative except as documented in HPI - Physical Exam General: Alert HEENT: Normocephalic Neck: Supple Lungs: Normal air movement Cardiovascular: Normal S1, Normal S2 Abdomen: Bowel Sounds Present Extremities: No cyanosis Neurological: - - consious, alert, AoA x3, CN 2-12 grossly intact, pupils BERL, power- examination is severely restricted to pain, he does move both UE but has decreased effort due to pain, is not able to lift the LE against gravity again due to pain in the legs and thighs per patient, Reflexes B/L ++ B/S/T/K/ + A, plantars B/L flexor (patient able to flex his knees when plantars were elicited but was unable to flex the knees when asked to as was complaining of pain-was effort dependent too), no sensory loss, gait deferred, no cerebellar signs. Psych/Mental Status: Normal Affect Vital Signs Temp Pulse Resp BP Pulse Ox 98.8 F 82 16 132/67 H 96 06/02/18 11:15 06/02/18 11:29 06/02/18 11:15 06/02/18 11:15 06/02/18 11:15 Oxygen Delivery Method Room Air Weight: 97 kg Body Mass Index (BMI) 32.5 Intake and Output for Last 24 Hours Intake Total 1040 / 1040 Output Total 700 / 700 Balance 340 / 340 Microbiology Past 72 Hours 06/02/18 01:40 Respiratory Panel (PCR) - Final Mucosa - Nose Laboratory Tests Past 24 Hrs WBC 5.2 WBC RBC Hgb Hct MCV MCH MCHC RDW RDW Differential WBC RBC Assessment/Plan All Active Problems (Last Updated 06/01/18 @ 23:14 by Maycol Lara MD) Generalized weakness (Acute) The patient is a 57 year old CM with PMH HTN (not on medications- per patient he does not visit physicians regularly), EVY not on CPAP admitted with generalized weakness, and pain. 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 Does not use cane or walker to ambulate, denies any falls, denies any sick contacts, denies any rash, tick bite, denies any history of respiratory infection or diarrhea recently. At present denies any BATISTA, visual disturbances, speech disturbances, focal motor weakness or sensory loss. ED documented ascending weakness but there is no ascending weakness per patient's clinical history, even though had normal reflexes in the ED still it was felt to be GBS by ED physician and LP was attempted which failed and he is due to undergo LP under fluoroscopy guidance soon. Per documentation he denied any SOB at rest but may have some breathing issues on moving. But he denies any SOB at present.He does complaint of neck pain and lower back pain with radicular symptoms, denies any urinary retention or incontinence. Impression Generalized pain/weakness, myalgias Unlikely to be GBS at present clinically Plan -Labs reviewed- normal except high AST 43 and TSH-4.73 -Total CK-188 normal -MRI brain w/w/o contrast- reported nothing acute -MRI C spine w/w/o contrast-reported no extruded disc fragment, moderate stenosis of the left C6-C7 neural foramen, mild stenosis of the right C5-C6 neural foramen, minimal anterior wedging of C6 superior endplate, may be developmental or from remote injury, minimal anterior wedging of T1 superior endplate may be developmental or from remote injury, minimal compression fracture of T3 superior endplate may be from remote injury. -Recommend spine surgery consult -Await LP, west Nile testing, Lyme testing and rheumatological testing and anti Xena ab testing. -Await MRI L spine -Can check NCS both LE/UE if possible. -Check UDS, ESR, CRP -PT/OT -GI/DVT prophylaxis -Fall precautions -Further medical management per primary team -Please call with questions if any -Thank you for allowing us to participate in patient's care and management I spent 60 minutes taking history, doing physical examination, reviewing medical records, coordinating care and counseling the patient. 06/15/18 1556 <Electronically signed by Kelsey Turner MD> Date Kelsey Turner MD Cosigner Signature (if applicable): Date CC: No Primary Care Physician; Rebekah Turner MD Signed DISCHARGE SUMMARY Observed: 06/09/2018 Status: F Source: [place] 9:54 [facility] REPOSITORY [facility] Medical Records Department [address] [place] [address] Discharge Summary 06/05/18 1053 MR#: [id number] Acct: [id number] Name: CHUCKAUBREYKRYSTINA W Rep #: [id number] : 1960 57 From: Breann Delgado MD PCP: Care Physician, No Primary Status: DIS IN Y Location: [place] [id number] Discharge Date and Diagnosis Date of Admission: 06/01/18 Date of Discharge: 06/05/18 - Primary Discharge Diagnosis Active and Suspected Problems (Last Updated 06/01/18 @ 23:14 by Maycol Lara MD) Generalized weakness (Acute) Debility Hospital Course and Treatment Imaging Results: Clinical Impression(s) from Imaging Studies Chest X-Ray 06/01/18 20:19 IMPRESSION: No acute cardiopulmonary pathology Electronically Signed: Krystina Gómez MD at 21:05 EDT , Service support , Brain CT 06/01/18 22:24 IMPRESSION: Mild periventricular white matter ischemic changes. No evidence for acute intracranial bleed. If concern for acute infarct MRI recommended Electronically Signed: Krystina Gómez MD at 23:28 EDT , Service support , Brain MRI 06/01/18 23:53 IMPRESSION: Normal unenhanced and enhanced MRI of the brain. Electronically Signed: Cirilo Jay MD at 10:32 EDT , Service support , Cervical Spine MRI 06/01/18 23:53 IMPRESSION: 1. No MRI evidence of cervical extruded disc fragment. 2. Moderate stenosis of the left C6-C7 intervertebral neural foramen is suspicious study due to osteophytes arising from the left uncovertebral joint. 3. Mild stenosis of the right C5-C6 intervertebral neural foramen due to osteophyte arising from the right uncovertebral joint. 4. Minimal anterior wedging of C6 superior endplate may be developmental or from remote injury. 5. Minimal anterior wedging of T1 superior endplate may be developmental or from remote injury. 6. Minimal compression fracture of the T3 superior endplate may be from remote injury. Electronically Signed: Cirilo Jay MD at 10:30 EDT , Service support , Lumbar Puncture Fluoroscopy 06/02/18 06:00 IMPRESSION: Successful fluoroscopic-guided lumbar puncture. Electronically Signed: Dagoberto Knight MD at 13:28 EDT Tel [phone], Service support , Lumbar Spine MRI 06/02/18 09:52 IMPRESSION: 1. No MRI evidence of lumbar extruded disc fragment. 2. Mild L5-S1 disc space height narrowing with minimal degenerative anterolisthesis of L5 on S1 and moderate right degenerative facet arthropathy. 3. Mild central canal stenosis at L4-L5 disc level secondary to developmentally short pedicles. The AP canal diameter is 9 mm. 4. Mild central canal stenosis at L3-L4 disc level secondary to developmentally short pedicles. The AP canal diameter is 10 mm. 5. Mild central canal stenosis at L2-L3 disc level secondary to developmentally short pedicles. The AP canal diameter is 9 mm. 6. Mild central canal stenosis at the L1-L2 disc level secondary to developmentally short pedicles. The AP canal diameter is 10 mm. Electronically Signed: Cirilo Jay MD at 14:02 EDT , Service support , Neurology Operations: None Procedures: - - EMG Summary of Care Provided: 57-year-old male with no significant past medical history comes in with generalized weakness and inability to walk. Patient woke up with generalised weakness and inability to walk. He had tried getting up and had bilateral hip pain. This progressed with worsening weakness and inability to move. 1. Debility, myalgias, unclear etiology, labs showed elevated CRP and ESR, CK normal, otherwise normal blood work. MRI brain is normal, C-spine MRI shows C6-C7 moderate spinal stenosis, MRI lumbar spine shows mild canal stenosis. CSF pathology at time of discharge was so far negative. Neurology was consulted. EMG was negative. Patient was evaluated by PT and OT and outpatient therapy with wartm water therapy was recommended. The rest of the lab work including Lyme disease serology, West Nile were all pending. He was given a primary care doctor to follow-up with. Discharge Diet: No Restrictions Discharge Activity: Return to Normal Activity Home Medications: Medications to take at Discharge NK [NK] 06/01/18 Primary Care Physician: Care Physician,No Primary [Primary Care Provider] - Please follow up with your Primary Care Physician in: within 2 weeks Disposition: Home Minutes spent on discharge:: 45 Patient Condition:: Stable Medical Necessity - Tobacco Use Smoking Status: Former smoker Tobacco Use: Chew Meaningful Use Info Meaningful Use Diagnoses (Choose all that apply): None applicable Code Visit Inpatient E AND M: 20025 Disch Hosp 06/09/18 0954 <Electronically signed by Breann Delgado MD> Date Breann Delgado MD Cosigner Signature (if applicable): Date CC: No Primary Care Physician; Breann Delgado MD Signed DISCHARGE INSTRUCTION Observed: 06/05/2018 Status: F Source: [place] 12:01 PM [facility] REPOSITORY [facility] Medical Records Department [address] [place] [address] Instructions for Home/Discharge Instructions 06/05/18 1051 MR#: [id number] Acct: [id number] Name: KRYSTINA SYLVESTER Rep #: [id number] : 1960 57 From: Breann Delgado MD PCP: Care Physician, No Primary Status: ADM IN - Discharge Diagnoses Current Active Problems: Current Active and Chronic Problems (Last Updated 06/01/18 @ 23:14 by Maycol Lara MD) Generalized weakness (Acute) Reason(s) for Visit for Discharge Instructions: Weakness You will use the following diet at home:: Regular Your food should be the consistency of: Regular Your liquids should be the consistency of: Regular/Thin Discharge Activity: Return to Normal Activity Additional Instructions: You have been referred to an outpatient physical therapy for warm water therapy. You should follow-up with a primary care physician for the rest of your results. Ok to take tylenol as needed for body pain Allergies/Adverse Reactions: Allergies No Known Allergies Allergy (Verified 06/01/18 19:30) Medications to take at Discharge NK [NK] 06/01/18 Primary Care Physician: Care Physician,No Primary [Primary Care Provider] - Please follow up with your Primary Care Physician in: within 2 weeks Test Results: Test results from this visit will be discussed in further detail at your follow-up appointment, if applicable. Proposed Discharge Date: 06/05/18 06/05/18 1201 <Electronically signed by Breann Delgado MD> Date Breann Delgado MD CC: No Primary Care Physician; He Burleson MD BASIC METABOLIC Collected: 06/05/2018 Status: F Source: [place] PROFILE (BMP) 11:23 AM [facility] REPOSITORY TYPE CODE TESTS RESULT OUT OF RANGE REFERENCE UNITS LAB L501.0100 74-106 mg/dL High GLU 130 Result Comment: Fasting Glucose result greater than or equal to 126 mg/dL suggests DIABETES MELLITUS per A.D.A. criteria. Please note revised GLUCOSE reference range effective 2017. LAB L501.1000 7-18 mg/dL Normal BUN 18 LAB L501.1100 0.70-1.30 mg/dL Normal CREAT,SERUM 0.84 Result Comment: The validity of the calculated GFR AND GFRAA in patients over 70 years has not been determined. Clinical correlation is essential. LAB L501.1110 >60 mL/min Normal EST GFR 101 Result Comment: Non- GFR Calc LAB L501.1115 >60 mL/min Normal EST GFR - AA 123 Result Comment: GFR Calc LAB L501.1255 ml/min Normal Estimated CRCL 96.13 LAB L501.1300 10-20 RATIO High BUN/CRE 21.6 LAB L501.2200 8.5-10 mg/dL Normal .1 CA 8.8 LAB L501.5300 136-14 mmol/L Normal 5 NA 143 LAB L501.5600 3.5-5. mmol/L Normal 1 K 4.2 LAB L501.5900 98-107 mmol/L Normal CL 107 LAB L501.6100 21.0-3 mmol/L Normal 2.0 CO2 27.0 LAB L501.6200 5-15 Normal GAP 9 Performed By: #### L500.2500 #### [facility] [address] [place], [address] CBC W/DIFF, AUTOMATED Collected: 06/05/2018 Status: F Source: [place] 11:23 AM [facility] REPOSITORY Order Comment: DELAY IN TESTING DUE TO ANALYZER ISSUE. MESFIN PEDERSON NOTIFIED. 1139 06/05/18 TYPE CODE TESTS RESULT OUT OF RANGE REFERENCE UNITS LAB L100.1000 4.4-11.0 K/mm3 Normal WBC 6.3 LAB L100.1200 4.6-6.2 M/mm3 Normal RBC 5.13 LAB L100.1300 13.0-16.5 g/dl Normal HGB 14.9 LAB L100.1400 40-54 % Normal HCT 45.9 LAB L100.1500 80-94 fL Normal MCV 89.5 LAB L100.1600 27.0-32.0 pg Normal MCH 29.0 LAB L100.1700 32-36 g/gl Normal MCHC 32.5 LAB L100.1810 11.6-14.6 % Normal RDW CV 13.3 LAB L100.1820 35.1-43.9 fl Normal RDW SD 43.1 LAB L100.1900 150-450 K/mm3 Normal PLT 244 LAB L100.2000 6.2-12.0 fl Normal MPV 10.9 LAB L100.2100 47-70 % Normal NEUT% 53.8 LAB L100.2200 19-41 % Normal LY% 36.9 LAB L100.2300 0-10 % Normal MONO% 6.8 LAB L100.2400 0-5 % Normal EO% 1.9 LAB L100.2500 0-1 % Normal BASO% 0.3 LAB L100.2550 0.0-0.9 % Normal IM GRAN % 0.300 Result Comment: IG% - Immature Granulocytes (promyelocytes, myelocytes and metamyelocytes) > 1% indicates that a LEFT SHIFT is Present. LAB L100.2620 2.0-7.7 X10 3/uL Normal Absolute Neut 3.4 LAB L100.2720 0.83-4.51 X10 3/ul Normal Absolute Lymph 2.32 Performed By: #### L100.0100 #### [facility] [address] [place], [address] NCS AND/OR EMG Observed: 06/04/2018 Status: F Source: [place] PATIENT 4:10 PM [facility] REPOSITORY [facility] Pulmonary Services/Neurology [address] [place] [address] MR#: [id number] Acct: [id number] Name: KRYSTINA SYLVESTER Rep #: [id number] : 1960 57 From: Flavio Stratton MD Referring Dr: Breann Delgado MD Status: ADM IN Ordering Dr: Date: [id number] Sex: M C NCS and/or EMG Patient Report Ordering Doctor: Pete Lester DATE OF SERVICE: 06/03/18 Krystina Sylvester is referred for electrodiagnostic testing of the right upper and right lower limb due to generalized weakness. Electrodiagnostic findings: Right median and ulnar motor studies are within normal limits. Normal right common peroneal and tibial motor response. Median, ulnar, tibial and peroneal F waves are normal. Normal H reflex bilaterally. Sensory responses are within normal limits. Needle EMG testing was not performed. Electrodiagnostic impression: This is a normal nerve conduction study of the right upper and right lower limb. There is no electrodiagnostic evidence for peripheral neuropathy. If there are any further questions, please do not hesitate to contact me 06/04/18 1610 <Electronically signed by Flavio Stratton MD> Date Flavio Stratton MD CC: No Primary Care Physician; Breann Delgado MD; Flavio Stratton Date Dictated: 06/04/181605 Date Transcribed: 06/04/181605 Plant Control Aide: AA Signed 12 LEAD ELECTROCARDIOGRAM Observed: 06/03/2018 Status: F Source: [place] 12:55 PM [facility] REPOSITORY [facility] Cardiovascular Services [address] [place] [address] 12 Lead EKG 06/01/182026 MR#: [id number] Acct: [id number] Name: KRYSTINA SYLVESTER Rep #: [id number] : 1960 57 From: Nick Miles MD Attending Dr: Pete Lester DO Status: ADM IN Ordering Dr: Jesse Lockett MD Date: 06/01/18 Location: [facility] Sex: M C Admitted: 06/01/18 Test Reason : SOB Blood Pressure : / mmHG Vent. Rate : 111 BPM Atrial Rate : 111 BPM P-R Int : 148 ms QRS Dur : 076 ms QT Int : 330 ms P-R-T Axes : 021 007 -08 degrees QTc Int : 448 ms Sinus tachycardia Inferior infarct , age undetermined Abnormal ECG Confirmed by WHITNEY VANESSA, NICK ([id number]), metropolitan editor MARTA GASTON ([id number]) on 06/03/2018 12:54:48 PM Referred By: CARRIE Confirmed By:NICK MILES MD 06/03/18 1254 Date Nick Miles MD CC: No Primary Care Physician; Pete Lester DO; Jesse Lockett MD Signed URINE DRUG SCREEN Collected: 06/02/2018 Status: F Source: [place] (VISTA) 8:00 PM [facility] REPOSITORY TYPE CODE TESTS RESULT OUT OF RANGE REFERENCE UNITS LAB L505.0075 TO BE Normal CONFIRMED Result Comment: CONFIRMATORY TESTING FOR ALL POSITIVE URINE DRUG SCREEN RESULTS WILL ONLY BE SENT OUT UPON PHYSICIAN ORDER. VISTA Urine Drug Screen methods provide only preliminary analytical test results. A more specific alternate chemical method must be used in order to obtain a confirmed analytical result. Gas chromatography/mass spectrometery (GC/MS) is the preferred confirmatory method. Clinical consideration and professional judgement should be applied to any drug of abuse test result, particularly when preliminary positive results are used. URINE TCA TESTING MUST BE ORDERED SEPARATELY. USE TEST MNEMONIC: [facility] LAB L505.5005 VISTA UDS PH 5 Normal LAB L505.5015 <1000 ng/mL AMPHETAMINES Normal NEGATIVE LAB L505.5025 < 200 ng/mL BARBITIURATES Normal NEGATIVE LAB L505.5035 < 200 ng/mL BENZODIAZIPINE Normal NEGATIVE LAB L505.5045 < 300 ng/mL COCAINE Normal NEGATIVE LAB L505.5055 < 500 ng/mL ECSTACY Normal NEGATIVE LAB L505.5065 < 300 ng/mL METHADONE Normal NEGATIVE LAB L505.5075 < 300 High ng/mL OPIATES POSITIVE LAB L505.5085 < 25 ng/mL PCP Normal NEGATIVE LAB L505.5095 < 50 ng/mL THC Normal NEGATIVE Performed By: #### L505.5000 #### [facility] [place], [address] CYTOSPIN ON FLUID Observed: 06/02/2018 Status: F Source: [place] 1:18 PM [facility] REPOSITORY Patient: KRYSTINA SYLVESTER : 1960 (57/M) Acct Num: [id number] Phys: Tayler MORALEZPete Unit Num: [id number] Loc: U [id number] Specimen: [id number] Received: 06/02/18 - 1349 Spec Type: CYSPIN FL TISSUES TISSUES: Cerebrospinal Fluid CYTOLOGY GROSS Received is 2 ml of clear colorless fluid labeled with the patient's name and and designated per the requisition as CSF. Submitted for cytology preparation. / 06/02/18 TC:5 CPT: 58149 CYTOLOGY STUDY Slides are reviewed. DIAGNOSIS CYTOLOGY Cerebrospinal fluid for cytology (cytospin): Negative for malignant cells. SJ:braeden 06/03/18 HEADER OPERATION: Lumbar puncture PRE-OP DIAGNOSIS: Weakness TISSUE SUBMITTED: Cerebrospinal fluid for cytology Signed Sarwat Jane 06/03/18 <signature on file> Performed By: #### PCYSPIN #### [facility] [place] Shaw, [address] Observed: 06/02/2018 Status: F Source: [place] DON, FUNGUS 8482 1:15 PM [facility] REPOSITORY Cu,[id number] TESTING PERFORMED AT [facility]. ORIGINAL REPORT ON FILE IN LAB CONTAINS ADDITIONAL TEST SITE INFORMATION. CUF No yeast or mold isolated after 4 weeks. Performed By: #### M600.2000 #### [facility] [address] [place], [place] [address]HALLIE Valdes, [address] SPINAL FLUID CELL Collected: 06/02/2018 Status: C Source: [place] COUNT+DIFF 1:07 PM [facility] REPOSITORY TYPE CODE TESTS RESULT OUT OF REFERENCE UNITS RANGE LAB L200.2500 TESTED 3 Normal TUBE # LAB L200.2600 Colorless CSF Normal Color COLORLESS LAB L200.2650 Clear Normal APPEARANCE CSF CLEAR LAB L200.2695 0.000-0.000 10 3/uL TC CSF High 0.004 Result Comment: This is the Total Number of Nucleated Cell Types in the Body Fluid. LAB L200.2700 None seen /mm-3 High 3 RBC,CSF LAB L200.2750 0.000-0.00 10 3/uL High 0 WBC,CSF 0.004 LAB L200.3000 Normal PATH REV Reviewed Result Comment: Negative for malignant cells. Sarwat Jane M.D. 06/04/18 AMENDED REPORT 06/04/18 1504 PATH REV previously reported as: May follow LAB L200.3510 % Normal BF PMN 50.0 WBC% LAB L200.3515 % Normal BF MN 50.0 WBC% LAB L200.3520 10 3/uL Normal BF MN 0.002 WBC# LAB L200.3525 10 3/uL Normal BF PMN 0.002 WBC# Performed By: #### L200.0100 #### [facility] [address] [facility] [place], [address] GLUCOSE SPINAL FLUID Collected: 06/02/2018 Status: F Source: [place] 1:03 PM [facility] REPOSITORY Order Comment: Specimen Source? CSF TYPE CODE TESTS RESULT OUT OF RANGE REFERENCE UNITS LAB L501.0400 40-75 mg/dL Normal GLU SPINAL 62 FLD Performed By: #### L501.0400 #### [facility] [address] [place], [address] PROTEIN SPINAL FLUID Collected: 06/02/2018 Status: F Source: [place] 1:03 PM [facility] REPOSITORY TYPE CODE TESTS RESULT OUT OF RANGE REFERENCE UNITS LAB L501.1600 15.0-45.0 mg/dL Normal PROTEIN CSF 40.0 Performed By: #### L501.1600 #### [facility] [address] [place], [address] Observed: 06/02/2018 Status: F Source: [place] CULTURE, CSF 1:03 PM [facility] REPOSITORY Gram Stain Centrifuged Specimen? Culture performed on centrifuged specimen Gram Stain 1+ Red Blood Cells Rare White Blood Cells No organisms seen CSF Culture No growth in 72 hours. Performed By: #### M100.0700 #### [facility] [address] [place], [address] CYTOLOGY, BODY FLUID / Collected: 06/02/2018 Status: F Source: [place] CSF 1:03 PM [facility] REPOSITORY TYPE CODE TESTS RESULT OUT OF RANGE REFERENCE UNITS LAB L350.1000 SEE Normal PATHOLOGY CYTOLOGY,BF REPORT /CSF Result Comment: Specimen submitted to Anatomical Pathology Department for testing. Performed By: #### L350.1000 #### [facility] [address] [place], [address] HSV 1/2 BY PCR Collected: 06/02/2018 Status: F Source: [place] 1:03 [facility] REPOSITORY Order Comment: Comments: CSF TYPE CODE TESTS RESULT OUT OF RANGE REFERENCE UNITS LAB L3400.1650 Negative Normal HSV 1 Negative BY PCR LAB L3400.1655 Negative Normal HSV 2 Negative BY PCR Result Comment: This test was developed and its performance characteristics determined by [employer]. It has not been cleared or approved by the U.S. Food and Drug Administration. The FDA has determined that such clearance or approval is not necessary. This test is used for clinical purposes. It should not be regarded as investigational or research. Performed at: [address] [id number] Regulatory Compliance Manager: Vladimir Jordan MD, Phone: [phone] Performed By: #### L3400.1645 #### [facility] (refer to report for specific site) refer to report for address and phone number CRYPTOCOCCUS ANTIGEN CSF Collected: 06/02/2018 Status: F Source: [place] 1:03 PM [facility] REPOSITORY TYPE CODE TESTS RESULT OUT OF RANGE REFERENCE UNITS LAB L800.1960 Negative Normal CRYP Negative AG CSF Performed By: #### L800.1960 #### [facility] (refer to report for specific site) refer to report for address and phone number VDRL CEREBROSPINAL FLUID Collected: 06/02/2018 Status: F Source: [place] 1:03 PM [facility] REPOSITORY Order Comment: Comments: CSF TYPE CODE TESTS RESULT OUT OF RANGE REFERENCE UNITS LAB L801.5410 Non [place]:<1:1 Normal VDRL, Non Reactive CSF 6445 Result Comment: Performed at: [address] [id number] Regulatory Compliance Manager: Vladimir Jordan MD, Phone: [phone] Performed By: #### L801.5410 #### [facility] (refer to report for specific site) refer to report for address and phone number CMV BY PCR Collected: 06/02/2018 Status: F Source: [place] 1:03 PM [facility] REPOSITORY TYPE CODE TESTS RESULT OUT OF RANGE REFERENCE UNITS LAB L3400.1525 Negative Normal CMV PCR Negative [id number] Result Comment: No Cytomegalovirus DNA Detected. This test was developed and its performance characteristics determined by [employer]. It has not been cleared or approved by the Food and Drug Administration. The FDA has determined that such clearance or approval is not necessary. Performed at: [address] [id number] Regulatory Compliance Manager: Vladimir Jordan MD, Phone: [phone] Performed By: #### L3400.1525 #### [facility] (refer to report for specific site) refer to report for address and phone number ENTEROVIRUS BY PCR Collected: 06/02/2018 Status: F Source: [place] 1:03 PM [facility] REPOSITORY TYPE CODE TESTS RESULT OUT OF REFERENCE UNITS RANGE LAB L3400.1550 Negative ENTEROVIRUS Normal PCR Negative Result Comment: No Enteroviral RNA Detected. This test was developed and its performance characteristics determined by [employer]. It has not been cleared or approved by the Food and Drug Administration. The FDA has determined that such clearance or approval is not necessary. Performed at: [address] [id number] Regulatory Compliance Manager: Vladimir Jordan MD, Phone: [phone] Performed By: #### L3400.1550 #### [facility] (refer to report for specific site) refer to report for address and phone number WEST NILE VIRUS Collected: 06/02/2018 Status: F Source: [place] QUAL BY PCR 1:03 PM [facility] REPOSITORY Order Comment: Comments: CSF TYPE CODE TESTS RESULT OUT OF RANGE REFERENCE UNITS LAB L7000.8510 Normal WNV QUAL PCR Result Comment: TEST RESULT LIMITS West Nile Virus Antibody, CSF West Nile Virus, IgG Negative Negative No detectable West Nile Virus IgG Antibody. If a recent infection is suspected, another specimen should be submitted for testing within 7-14 days. West Nile Virus, IgM Negative Negative No detectable West Nile Virus IgM Antibody. If a recent infection is suspected, another specimen should be submitted for testing within 7-14 days. [facility] ORIGINAL REPORT ON FILE IN LAB CONTAINS ADDITIONAL TEST SITE INFORMATION. LAB L7000.8520 . Normal WNV PCR Comment AMP/DET Result Comment: Performed Performed at: [facility] [address] [place] [id number] Regulatory Compliance Manager: Mitchell Morales MD, Phone: [phone] Performed at: [facility] [address] [place] [id number] Regulatory Compliance Manager: Mitchell Morales MD, Phone: [phone] Performed By: #### L7000.8500 #### [facility] (refer to report for specific site) refer to report for address and phone number V-ZOSTER VIRUS DNA, Collected: 06/02/2018 Status: F Source: [place] PCR 1:03 PM [facility] REPOSITORY Order Comment: Comments: From CSF TYPE CODE TESTS RESULT OUT OF RANGE REFERENCE UNITS LAB L3440.0000 Normal VZOST DNA PCR Result Comment: NEGATIVE REF INT: NEGATIVE No Varicella Zoster Virus DNA detected. This test was developed and its performance characteristics determined by [employer]. It has not been cleared or approved by the Food and Drug Administration. The FDA has determined that such clearance or approval is not necessary. Performed at: - [facility] [address] [id number] Regulatory Compliance Manager: Vladimir Jordan MD, Phone: [phone] Performed By: #### L3440.0000 #### [facility] (refer to report for specific site) refer to report for address and phone number SPINE LUMBAR Observed: 06/02/2018 Status: F Source: [place] (ROUTINE) 9:52 AM [facility] REPOSITORY [facility] Imaging Services [address] [place] [address] Spine Lumbar (Routine) MR#: [id number] Acct: [id number] Name: KRYSTINA SYLVESTER Rep #: [id number] : 1960 M 57 From: Cirilo Jay MD PCP: Care Physician, No Primary Status: ADM IN Study: Spine Lumbar (Routine) Date of Exam: 06/02/18 Exam# [id number] Ordering Dr: Kelsey Turner MD STUDY: MRI LUMBAR SPINE WITHOUT CONTRAST REASON FOR EXAM: Male, 57 years old. Unable to walk. Arm and bilateral leg weakness. TECHNIQUE: Standardized fat and water weighted pulse sequences were obtained in the sagittal and axial planes. COMPARISON: None FINDINGS: T11-T12: (Sagittal only). Normal endplates with Schmorl's nodes. Normal disc height, hydration and morphology. Normal central canal and bilateral intervertebral neural foramina. T12-L1: (Sagittal only). Normal endplates with Schmorl's nodes. Minimal disc space height narrowing but normal disc hydration and normal disc morphology. Normal central canal and bilateral intervertebral neural foramina. Normal lumbar lordosis. There is no substantial scoliosis. Normal conus medullaris that terminates at the mid T12 vertebral body level. L1-2: Normal endplates with Schmorl's nodes at. Normal disc height, hydration and morphology. Mild central canal stenosis and canal diameter of 10 mm. Normal bilateral lateral recesses. Normal facet joints. Normal bilateral intervertebral neural foramina. L2-3: Normal endplates. Mild disc space height narrowing with mild loss of disc hydration. Mild central canal stenosis with an AP canal diameter of 9 mm. Normal bilateral lateral recesses. Mild left degenerative facet arthropathy. Normal right facet joint. Normal bilateral intervertebral neural foramina. L3-4: Normal endplates with Schmorl's nodes. Normal disc height, hydration and morphology. Mild central canal stenosis with an AP canal diameter of 10 mm. Normal bilateral lateral recesses. Normal facet joints. Normal bilateral intervertebral neural foramina. L4-5: Normal endplates with Schmorl's nodes. Normal disc height, hydration and morphology. Mild central canal stenosis with an AP canal diameter of 9 mm. Normal bilateral lateral recesses. Normal facet joints. Normal bilateral intervertebral neural foramina. L5-S1: Normal endplates. Mild disc space height narrowing. Minimal degenerative anterolisthesis of L5 on S1. Normal tapered narrowing of the central canal. Moderate right degenerative facet arthropathy. Mild left degenerative facet arthropathy. Normal bilateral intervertebral neural foramina. Normal visualized sacral ala. Normal visualized paraspinous soft tissue structures. MRI/Spine Lumbar (Routine) IMPRESSION: 1. No MRI evidence of lumbar extruded disc fragment. 2. Mild L5-S1 disc space height narrowing with minimal degenerative anterolisthesis of L5 on S1 and moderate right degenerative facet arthropathy. 3. Mild central canal stenosis at L4-L5 disc level secondary to developmentally short pedicles. The AP canal diameter is 9 mm. 4. Mild central canal stenosis at L3-L4 disc level secondary to developmentally short pedicles. The AP canal diameter is 10 mm. 5. Mild central canal stenosis at L2-L3 disc level secondary to developmentally short pedicles. The AP canal diameter is 9 mm. 6. Mild central canal stenosis at the L1-L2 disc level secondary to developmentally short pedicles. The AP canal diameter is 10 mm. Electronically Signed: Cirilo Jay MD at 14:02 EDT , Service support , CC: No Primary Care Physician; Rebekah Turner MD Plant Control Aide: Signed LYME SCREEN W/REFLEX Collected: 06/02/2018 Status: F Source: [place] WB 5:30 AM [facility] REPOSITORY TYPE CODE TESTS RESULT OUT OF RANGE REFERENCE UNITS LAB L7000.5400 0.00-0.90 ISR Normal LYME SCN <0.91 AB Result Comment: Negative <0.91 Equivocal 0.91 - 1.09 Positive >1.09 LAB L7000.5500 Normal LYME SCN REF INTERP LAB Performed By: #### L7000.5300 #### [facility] (refer to report for specific site) refer to report for address and phone number BASIC METABOLIC Collected: 06/02/2018 Status: F Source: [place] PROFILE (BMP) 5:05 AM [facility] REPOSITORY TYPE CODE TESTS RESULT OUT OF RANGE REFERENCE UNITS LAB L501.0100 74-106 mg/dL High GLU 124 Result Comment: Fasting Glucose result from 100 to 125 mg/dL suggests IMPAIRED HOMEOSTASIS per A.D.A. criteria. Please note revised GLUCOSE reference range effective 2017. LAB L501.1000 7-18 mg/dL Normal BUN 13 LAB L501.1100 0.70-1.30 mg/dL Normal CREAT,SERUM 0.85 Result Comment: The validity of the calculated GFR AND GFRAA in patients over 70 years has not been determined. Clinical correlation is essential. LAB L501.1110 >60 mL/min Normal EST GFR 99 Result Comment: Non- GFR Calc LAB L501.1115 >60 mL/min Normal EST GFR - AA 120 Result Comment: GFR Calc LAB L501.1255 ml/min Normal Estimated CRCL 95.00 LAB L501.1300 10-20 RATIO Normal BUN/CRE 15.2 LAB L501.2200 8.5-10 mg/dL Low .1 CA 8.0 LAB L501.5300 136-14 mmol/L Normal 5 NA 142 LAB L501.5600 3.5-5. mmol/L Normal 1 K 4.1 LAB L501.5900 98-107 mmol/L Normal CL 106 LAB L501.6100 21.0-3 mmol/L Normal 2.0 CO2 25.0 LAB L501.6200 5-15 Normal GAP 11 Performed By: #### L500.2500 #### [facility] [address] [place], [place], [id number] CBC-COMPLETE BLOOD CNT Collected: 06/02/2018 Status: F Source: [place] NO DIFF 5:05 AM [facility] REPOSITORY TYPE CODE TESTS RESULT OUT OF RANGE REFERENCE UNITS LAB L100.1000 4.4-11.0 K/mm3 Normal WBC 5.2 LAB L100.1200 4.6-6.2 M/mm3 Normal RBC 4.66 LAB L100.1300 13.0-16.5 g/dl Normal HGB 14.0 LAB L100.1400 40-54 % Normal HCT 41.0 LAB L100.1500 80-94 fL Normal MCV 88.0 LAB L100.1600 27.0-32.0 pg Normal MCH 30.0 LAB L100.1700 32-36 g/gl Normal MCHC 34.1 LAB L100.1810 11.6-14.6 % Normal RDW CV 13.4 LAB L100.1820 35.1-43.9 fl Normal RDW SD 43.0 LAB L100.1900 150-450 K/mm3 Normal PLT 203 LAB L100.2000 6.2-12.0 fl Normal MPV 10.5 Performed By: #### L100.0500 #### [facility] [address] [place], [place], [id number] PROTHROMBIN TIME W/INR Collected: 06/02/2018 Status: F Source: [place] 5:05 AM [facility] REPOSITORY TYPE CODE TESTS RESULT OUT OF RANGE REFERENCE UNITS LAB L300.4150 11.7-14.9 SECONDS Normal PROTIME 12.9 LAB L300.4200 Normal INR 1.0 Performed By: #### L300.3900, L300.4310 #### [facility] [address] [place], [place], [id number] PARTIAL THROMBOPLAST Collected: 06/02/2018 Status: F Source: [place] TIME 5:05 AM [facility] REPOSITORY TYPE CODE TESTS RESULT OUT OF RANGE REFERENCE UNITS LAB L300.4310 24.1-36.2 Seconds Normal PTT 34.9 Performed By: #### L300.3900, L300.4310 #### [facility] [address] [place], [address] ERYTHROCYTE SED RATE Collected: 06/02/2018 Status: F Source: [place] 5:05 AM [facility] REPOSITORY TYPE CODE TESTS RESULT OUT OF RANGE REFERENCE UNITS LAB L102.0000 0-20 mm/hr High SED RATE 26 Performed By: #### L101.9900 #### [facility] [address] [place], [address] CRP, HIGH SENSITIVITY Collected: 06/02/2018 Status: F Source: [place] CARDIAC 5:05 AM [facility] REPOSITORY TYPE CODE TESTS RESULT OUT OF RANGE REFERENCE UNITS LAB L501.6750 mg/L High CRP HIGH 10.30 SENS Result Comment: Low Relative Risk of CVD <1.0 mg/L Average Relative Risk of CVD 1.0 - 3.0 mg/L High Relative Risk of CVD >3.0 mg/L Performed By: #### L501.6750 #### [facility] [address] [place], [address] SHARON W/ REFLEX MULT Collected: 06/02/2018 Status: F Source: [place] CONFIRM 5:05 AM [facility] REPOSITORY TYPE CODE TESTS RESULT OUT OF RANGE REFERENCE UNITS LAB L3100.5475 Negative Normal Negative SHARON-DIRECT Result Comment: Performed at: - [facility] [id number] Regulatory Compliance Manager: Paul Christopher PhD, Phone: [phone] Performed By: #### L3100.5450 #### [facility]refer to [facility] for specific site[facility] refer to report for address and phone number Observed: 06/02/2018 Status: F Source: [place] CULTURE, BLOOD (WB) 5:05 AM [facility] REPOSITORY BC No growth in 5 days. Performed By: #### M200.1000 #### [facility] [place], [address] HISTORY AND PHYSICAL Observed: 06/02/2018 Status: F Source: [place] EXAM 1:45 AM [facility] REPOSITORY [facility] Medical Records Department [facility] [address] [place] [address] History and Physical 06/01/18 2218 MR#: [id number] Acct: [id number] Name: AUBREY SYLVESTER Rep #: [id number] : 1960 57 From: Maycol Lara MD PCP: Care Physician, No Primary Status: ADM IN Y Location: [place] [address] ADDENDUM by Maycol Lara MD on 06/02/18 at 0145 Code Visit Generalized weakness SHARON ordered for polymyositis. Patient will need aggressive physical therapy and Occupational Therapy. Inpatient E AND M: 13886 Init Hosp L3 06/02/18 0145 <Electronically signed by Maycol Lara MD> Date Maycol Lara MD cc: No Primary Care Physician; Maycol Lara MD * Signed Problem List (1) Generalized weakness Status: Acute History of Present Illness Date of Admission: 06/01/18 Chief Complaint: Generalized weakness 2 days The patient is a 57 year old M with a significant history of PTSD, anxiety, hypertension who presents because of a inability to walk. Patient reports that 2 days ago he began to notice weakness in all his extremities. And his weakness has progressively worsened to a point that he is not able to walk. Associated with his symptoms is a generalized pain; more pronounced in his bilateral hips and thighs. He reports some transient tingling in his right hand. He states that he does not have shortness of breath at rest. However if he tries to move he developed shortness of breath. Past Medical History Medical History: Medical History (Last Updated 06/01/18 @ 23:14 by Maycol Lara MD) HTN (hypertension) I10 Allergies No Known Allergies Allergy (Verified 06/01/18 19:30) Home Medications: Ambulatory Orders Medication Instructions Recorded NK [NK] 06/01/18 Surgical History: - - Left hand surgery Psychiatric History: Anxiety, Post traumatic stress Lives: Roommate Smoking Status: Former smoker Tobacco Use: Chew Alcohol: None Drugs: None - *Family History Maternal History Items: Diabetes, Hypertension, Renal Disease Paternal History Items: No pertinent history Review of Systems Constitutional: Denies: Chills, Fever, Weight Change HEENT: Reports: -. Denies: Head Aches, Sinus Congestion, Sinus Drainage Cardiovascular: Denies: Chest Pain, Palpitations Respiratory: Reports: Shortness of breath upon exertion Gastrointestinal: Denies: Abdominal Pain, Nausea, Vomiting Genitourinary: Denies: Dysuria Musculoskeletal: Reports: Arm Pain, Leg Pain, Muscle pain, Neck Pain, Shoulder Pain Skin: Denies: Rash, Wounds Neurological: Reports: Tingling - Transient and right hand Psychiatric: Denies: Homicidal Ideations, Suicidal Ideations Hematologic/ Lymphatic: Denies: Easy Bruising, Easy Bleeding VTE Information - Inpt Only VTE Present on Admission: No VTE Mechan Device Prophylaxis: None VTE Pharm Prophylaxis ordered?: Yes Patient Problems: Active and Suspected Problems (Last Updated 06/01/18 @ 23:14 by Maycol Lara MD) Generalized weakness (Acute) - Physical Exam General: Alert, Oriented x3, Cooperative HEENT: Atraumatic, PERRLA, EOMI, Normocephalic, - - Thyroid unremarkable. Neck: Supple, No JVD, Negative Carotid Bruits Lungs: Clear to auscultation, Normal air movement Cardiovascular: Regular rate, No murmurs Abdomen: Bowel Sounds Present, Soft, Non Tender Extremities: No edema, Capillary Refill Less than 3 Seconds Skin: No rashes, No breakdown Musculoskeletal: Tenderness - Generalized tenderness. Lymphatic: No Cervical, Supraclavicular, or Inguinal Adenopathy Neurological: Cranial nerves II-XII grossly intact, - - Very restricted range of motion of all extremities. Right knee with 2 out of 4 deep tendon reflexes. All other extremities with hyporeflexes. Psych/Mental Status: Appropriate Vital Signs Temp Pulse Resp BP Pulse Ox 98.6 F 98 15 156/97 H 95 06/01/18 19:30 06/01/18 21:52 06/01/18 21:52 06/01/18 21:52 06/01/18 21:52 Oxygen Delivery Method Room Air Weight: 97.522 kg Body Mass Index (BMI) 32.6 Laboratory Tests Past 24 Hrs WBC 6.4 RBC 5.12 Hgb 15.2 Hct 44.7 MCV 87.3 MCH 29.7 MCHC 34.0 RDW 13.3 Assessment/Plan All Active Problems (Last Updated 06/01/18 @ 23:14 by Maycol Lara MD) Generalized weakness (Acute) The patient is a 57 year old M with a significant history of PTSD, anxiety, hypertension who presents because of inability to walk; inability to raise his extremities general weakness and generalized pain. Generalized weakness, inability to walk, and generalized pain. Differential diagnosis includes Guillain-Saleh , Spinal cord disease, Polymyositis, Multiple sclerosis, West Nile; hypothyroidism or others. Discussed with ED doctor to get a lumbar puncture for studies. Unsuccessful attempt. LP by fluoroscopy ordered. CFS studies including cell counts total protein and West Nile IgM ordered. Oxycodone 5 mg every 6 hours for pain Scheduled Tylenol Neurology consult Vital capacity and NIF every 6 hours MRI of brain and cervical spine Blood cultures 2 Respiratory pathogen panel. TSH ordered. Hypertension The patient reports that his hypertension is well controlled without any medication Routine vitals PTSD/anxiety Clinical monitoring . DVT prophylaxis subcutaneous Lovenox Code Visit Inpatient E AND M: [id number] Init Hosp L3 06/02/18 0128 <Electronically signed by Maycol Lara MD> Date Maycol Lara MD Cosigner Signature: Date (if applicable) CC: No Primary Care Physician; Maycol Lara MD Signed Observed: 06/02/2018 Status: F Source: [place] RESPIRATORY PANEL 1:40 AM [facility] MOLECULAR REPOSITORY Order Date: 06/02/18 Comments: collected by Barbara Rae RP PANEL ADENOVIRUS Not Detected HUMAN METAPHNEUMO Not Detected INFLUENZA A Not Detected INFLUENZA A (SUBTYPE H1) Not Detected INFLUENZA A (SUBTYPE H3) Not Detected INFLUENZA B Not Detected PARAINFLUENZA 1 Not Detected PARAINFLUENZA 2 Not Detected PARAINFLUENZA 3 Not Detected PARAINFLUENZA 4 Not Detected RHINOVIRUS Not Detected RSV A Not Detected RSV B Not Detected NAAT METHOD Testing was performed using nucleic acid amplification Performed By: #### M100.638 #### [facility] [place], [address] FLUORO GUIDED LUMBAR Observed: 06/02/2018 Status: F Source: [place] PUNCTURE 1:17 AM [facility] REPOSITORY [facility] Imaging Services [address] [place] [address] Fluoro Guided Lumbar Puncture MR#: [id number] Acct: [id number] Name: KRYSTINA SYLVESTER Rep #: [id number] : 1960 M 57 From: Dagoberto Knight MD PCP: Care Physician, No Primary Status: ADM IN Study: Fluoro Guided Lumbar Puncture Date of Exam: 06/02/18 Exam# [id number] Ordering Dr: Maycol Lara MD PROCEDURE: Fluoroscopic guided Lumbar Puncture. DATE: June 02, 2018. CLINICAL INDICATION: Weakness. PHYSICIAN: Dagoberto Knight M.D. MEDICATIONS: 1% lidocaine administered subcutaneously for local anesthesia. ACCESS SITE: Lower posterior back. NEEDLE: 22-gauge spinal needle. SPECIMEN: Approximately 10 mL clear]CSF fluid. FLUOROSCOPY TIME (if supplied): (1:15) minutes/seconds COMPLICATIONS: None immediate. The risks, benefits, and alternatives to the procedure were explained to the patient. The specific risks of bleeding, infection, and neurovascular injury were detailed and accepted. Witnessed informed consent was obtained. The patient was placed on the fluoroscopic table in the prone position. The level for needle entry was determined and marked. The overlying skin was cleaned and prepped in the usual sterile fashion. 2% lidocaine was administered subcutaneously for local anesthesia. Under fluoroscopic guidance a 22-gauge spinal needle was advanced. The thecal sac was entered at the L4-L5 vertebral level. The inner stylet was removed. There was spontaneous flow of clear CSF fluid. The patient was placed in a reversed Trendelenburg position. Approximately 10 mL of cerebrospinal fluid was collected using gravity. The specimen was collected and submitted to the laboratory for further evaluation. The needle was withdrawn,. Hemostasis was achieved and a sterile dressing placed. The patient tolerated the procedure well without any immediate complications. The patient was placed supine with head elevated and returned to the floor in stable condition. RAD/Fluoro Guided Lumbar Puncture IMPRESSION: Successful fluoroscopic-guided lumbar puncture. Electronically Signed: Dagoberto Knight MD at 13:28 EDT Tel [phone], Service support , CC: No Primary Care Physician; Maycol Lara MD Plant Control Aide: Signed THYROID STIM HORMONE Collected: 06/02/2018 Status: F Source: [place] (TSH) 12:27 AM [facility] REPOSITORY TYPE CODE TESTS RESULT OUT OF RANGE REFERENCE UNITS LAB L501.9520 0.358-3.74 uIU/mL High TSH 4.73 Performed By: #### L501.9520 #### [facility] [address] [place], [address] FREE T3 Collected: 06/02/2018 Status: F Source: [place] 12:27 AM [facility] REPOSITORY TYPE CODE TESTS RESULT OUT OF RANGE REFERENCE UNITS LAB L501.30273 2.18-3.98 pg/mL Normal FREE T3 3.3 Performed By: #### L501.14415, L506.0400 #### [facility] [address] [place], [address] T4 FREE DIRECT Collected: 06/02/2018 Status: F Source: [place] 12:27 AM [facility] REPOSITORY TYPE CODE TESTS RESULT OUT OF RANGE REFERENCE UNITS LAB L506.0400 0.76-1.46 ng/dL Normal T4 FREE 1.06 DIRECT Performed By: #### L501.68958, L506.0400 #### [facility] [address] [place], [address] Observed: 06/02/2018 Status: F Source: [place] CULTURE, BLOOD (WB) 12:27 AM [facility] REPOSITORY Has pt arrived? Y BC No growth in 5 days. Performed By: #### M200.1000 #### [facility] [address] [place], [address] SPINE CERVICAL W/WO Observed: 06/01/2018 Status: F Source: [place] CONTRAST 11:54 PM [facility] REPOSITORY [facility] Imaging Services [address] [place] [address] Spine Cervical W/WO Contrast MR#: [id number] Acct: [id number] Name: AUBREY SYLVESTER Rep #: [id number] : 1960 M 57 From: Cirilo Jay MD PCP: Care Physician, No Primary Status: ADM IN Study: Spine Cervical W/WO Contrast Date of Exam: 06/01/18 Exam# [id number] Ordering Dr: Maycol Lara MD STUDY: MRI CERVICAL SPINE WITH AND WITHOUT CONTRAST REASON FOR EXAM: Male, 57 years old. Bilateral upper extremity weakness x2 days. TECHNIQUE: Standardized fat and water weighted pulse sequences were obtained in the sagittal and axial following I.V. administration of 10 ml of Gadavist contrast material. COMPARISON: None FINDINGS: Normal foramen magnum and brainstem-cervical cord junction. Normal craniovertebral junction. Normal anterior atlantoaxial articulation. Normal odontoid process. Straightening of the C-spine curve. Normal vertebral bodies and posterior osseous elements. C2-3: Normal endplates. Normal disc height, signal and morphology. Normal central canal and intervertebral neural foramina. C3-4: Normal endplates. Normal disc height, signal and morphology. Normal central canal and intervertebral neural foramina. C4-5: Normal endplates. Normal disc height, signal and morphology. Normal central canal and intervertebral neural foramina. C5-6: Normal C5 inferior endplate. Minimal anterior wedging of C6 superior endplate may be developmental or from remote injury. Minimal disc height narrowing. Normal disc morphology. Normal central canal. Mild stenosis of the right intervertebral neural foramen due to osteophyte arising from the right uncovertebral joint. Normal left intervertebral neural foramen. C6-7: Minimal anterior marginal spurs. Normal endplates. Mild disc space height narrowing. Normal central canal. Moderate stenosis of the left intervertebral neural foramen. Normal right intervertebral neural foramen. C7-T1: Normal C7 inferior endplate. Minimal anterior wedging of T1 superior endplate may be developmental. Normal disc height, hydration and morphology. Normal central canal and bilateral intervertebral neural foramina. T1-T2: (Sagittal only). Normal endplates. Normal disc height, hydration and morphology. Normal central canal and bilateral intervertebral neural foramina. T2-T3: ([place] only). Normal T2 inferior endplate. Minimal compression fracture of the T3 superior endplate may be from remote injury. Normal disc height, hydration and morphology. Normal central canal and bilateral intervertebral neural foramina. Following IV contrast administration, there are no suspicious enhancing lesions intradurally and extradurally. Normal cervical cord. Normal visualized soft tissue structures. MRI/Spine Cervical W/WO Contrast IMPRESSION: 1. No MRI evidence of cervical extruded disc fragment. 2. Moderate stenosis of the left C6-C7 intervertebral neural foramen is suspicious study due to osteophytes arising from the left uncovertebral joint. 3. Mild stenosis of the right C5-C6 intervertebral neural foramen due to osteophyte arising from the right uncovertebral joint. 4. Minimal anterior wedging of C6 superior endplate may be developmental or from remote injury. 5. Minimal anterior wedging of T1 superior endplate may be developmental or from remote injury. 6. Minimal compression fracture of the T3 superior endplate may be from remote injury. Electronically Signed: Cirilo Jay MD at 10:30 EDT , Service support , CC: No Primary Care Physician; Maycol Lara MD Plant Control Aide: Signed BRAIN W/WO CONTRAST Observed: 06/01/2018 Status: F Source: [place] 11:54 PM [facility] REPOSITORY [facility] Imaging Services [address] [place] [address] Brain W/WO Contrast MR#: [id number] Acct: [id number] Name: SIERRAAUBREY MCGEE Luci Rep #: [id number] : 1960 M 57 From: Cirilo Jay MD PCP: Care Physician, No Primary Status: ADM IN Study: Brain W/WO Contrast Date of Exam: 06/01/18 Exam# [id number] Ordering Dr: Maycol Lara MD STUDY: MRI BRAIN WITH AND WITHOUT CONTRAST REASON FOR EXAM: Male, 57 years old. Leg weakness and bilateral upper extremity weakness x2 days. TECHNIQUE: Standardized multiplanar fat and water weighted pulse sequences were obtained. 10 ml of Gadavist contrast material was administered intravenously for the contrast portion of the examination. COMPARISON: CT head without contrast 06/01/2018. FINDINGS: No restricted diffusion to suspect acute or subacute ischemic infarct. No focal signal abnormalities throughout the brain parenchyma. The lopez matter, white matter, ventricles and cisterns are normal. Following IV contrast administration, there are no enhancing lesions intraaxially or extra-axially. Normal size of the ventricles and extra-axial spaces for the patient's age. Normal white matter tracts of the supratentorial brain. Normal bilateral basal ganglia. Normal thalami. There is no extra-axial fluid accumulation. Normal flow voids within the major intracranial circulation suggesting patency by spin echo criteria. Normal venous enhancement. There is no enhancing intra-axial or extra-axial abnormality. Normal sella turcica, pituitary gland, infundibular stalk, optic chiasm and hypothalamus. Normal tectal plate and pineal gland. Normal midbrain, mariangel and medulla. Normal cerebellum. Normal basal cisterns. Normal bilateral temporal bones. Normal bilateral internal auditory canals. No demonstrated orbital abnormality, within the constraints of a routine brain study. Normal visualized paranasal sinuses. Normal calvarium and skull base. Normal visualized soft tissue structures. Normal visualized upper cervical spine. MRI/Brain W/WO Contrast IMPRESSION: Normal unenhanced and enhanced MRI of the brain. Electronically Signed: Cirilo Jay MD at 10:32 EDT , Service support , CC: No Primary Care Physician; Maycol Lara MD Plant Control Aide: Signed EMERGENCY DEPARTMENT Observed: 06/01/2018 Status: F Source: [place] SUMMARY 11:32 PM [facility] REPOSITORY [facility] Medical Records Department [address] [place] [address] Emergency Department Summary 06/01/182329 MR#: [id number] Acct: [id number] Name: AUBREY SYLVESTER Rep #: [id number] : 1960 57 From: Jesse Lockett MD PCP: Care Physician, No Primary Status: ADM IN - ER Visit Summary Date of Service: 06/01/18 Chief Complaint: Weakness History of Present Illness: The patient is a 57 M with 2-3 day history of progressing weakness in his legs and arms. He had some difficulty breathing when he walked up the steps. No fever chills. No chest pain. No recent illness. Physical Examination: Not appear in acute distress. Moist mucous membranes, no obvious facial deformity No C-spine tenderness supple neck. Regular rate and rhythm without any obvious murmurs Clear lungs bilaterally speaking in full sentences without any obvious respiratory distress Abdomen soft and nontender no guarding or rebound Moves all extremities without any difficulty or pain. Skin does not show any obvious rashes or lesions, no trauma. Alert oriented 3 with no gross focal deficit. Patient does have reflexes. He does have pain on palpation to his quadriceps muscles, he has weakness of both the arms and the legs, the leg somewhat worse. Emergency Department Course and Treatment: Patient has an unremarkable workup in the emergency department, he does not give any history of progressive ascending weakness, and he does have intact reflexes but the possibility of Guillain-Saleh still there, I did attempt a lumbar puncture but because his body habitus I could not get it done. I discussed with the hospitalist for admission. Patient will need further workup tomorrow as well as a neurological consult. He will be observed tonight. Admit stable condition Impression: [Weakness] This note was generated with [employer] dictation software. It may contain incorrect words, spelling, and punctuation that were not noted in review of the chart prior to signing ED Disposition - Plan for ED Patient: Chief Complaint: Shortness of Breath What to do if you have Problems For any increased pain, shortness of breath, bleeding, nausea or vomiting, chest pain, or any unexpected problems, contact your Primary Care Provider. Call [facility] ([phone]) or report to the closest Emergency Room. Call 911 if necessary. 06/01/182331 <Electronically signed by Jesse Lockett MD> Date Jesse Lockett MD Cosigner Signature (If Indicated): Date CC: No Primary Care Physician BRAIN/HEAD W/WO Observed: 06/01/2018 Status: F Source: [place] CONTRAST 10:25 PM [facility] REPOSITORY [facility] Imaging Services [address] [place] [address] Brain/Head W/WO Contrast MR#: [id number] Acct: [id number] Name: AUBREY SYLVESTER Luci Rep #: [id number] : 1960 M 57 From: Krystina Gómez MD PCP: Care Physician, No Primary Status: ADM IN Study: Brain/Head W/WO Contrast Date of Exam: 06/01/18 Exam# [id number] Ordering Dr: Jesse Lockett MD STUDY: CT BRAIN WITH AND WITHOUT CONTRAST REASON FOR EXAM: Male, 57 years old. Difficulty walking RADIATION DOSAGE (If Supplied By Facility): CTDIvol = ( 44.99 ) mGy, DLP = ( 1479.73 ) mGycm TECHNIQUE: Transaxial CT imaging of the brain was performed pre and post contrast administration. The examination was performed with intravenous administration of 50 ml of Isovue 370 contrast material. Individualized dose optimization techniques were used for this CT. COMPARISON: None. FINDINGS: Normal soft tissue structures. Normal calvarium. Normal size ventricles and extra-axial spaces for the patient's age. Mild periventricular white matter ischemic changes.. Normal basal ganglia and thalami. Normal brainstem. Normal cerebellum. No abnormal enhancement following contrast administration There is no intracranial hemorrhage. There are no findings of an acute ischemic infarction. Normal visualized paranasal sinuses. CT/Brain/Head W/WO Contrast IMPRESSION: Mild periventricular white matter ischemic changes. No evidence for acute intracranial bleed. If concern for acute infarct MRI recommended Electronically Signed: Krystina Gómez MD at 23:28 EDT , Service support , CC: No Primary Care Physician; Jesse Lockett MD Plant Control Aide: Signed URINALYSIS, COMPLETE Collected: 06/01/2018 Status: F Source: [place] 10:05 PM [facility] REPOSITORY Order Comment: Order Date: 06/01/18 How was Urine Obtained? MEMBERSHIP COORDINATOR TO SPECIFY TYPE CODE TESTS RESULT OUT OF RANGE REFERENCE UNITS LAB L400.3000 Yellow COLOR Normal Yellow LAB L400.3050 Clear Normal CLARITY Sl. Cloudy LAB L400.3200 Normal mg/dl Normal GLUCOSE, UR Normal LAB L400.3300 Negative mg/dL Normal BILIRUBIN URINE Negative LAB L400.3400 Negative mg/dl Normal KETONE UR Negative LAB L400.3465 1.002-1.030 Normal SP.GR. DIPSTX 1.015 LAB L400.3550 5.0 - 8.0 pH UR Normal 7.0 LAB L400.3600 Negative mg/dl PROT Normal DIPSTX Negative LAB L400.3700 Normal mg/dl Normal UROBILI Normal LAB L400.3750 Negative Normal NITRITE UR Negative LAB L400.3780 Negative /ul Normal OCCULT BLOOD-UR Negative LAB L400.3800 Negative /ul LEUK Normal ESTERASE Negative LAB L400.4050 0-5 /hpf WBC 0 Normal SEEN LAB L400.4100 0-5 /hpf 0 Normal RBC-UA SEEN LAB L400.4150 0-5 /hpf SQUAM Normal EPI 0-5 SEEN LAB L400.4300 None Seen /hpf 0 Normal BACTERIA SEEN LAB L400.4350 <or=2+ /hpf 0 Normal MUCUS, URINE SEEN Performed By: #### L400.0001 #### [facility] [address] [place], [address] CPK TOTAL, CREATINE Collected: 06/01/2018 Status: F Source: [place] KINASE 9:50 PM [facility] REPOSITORY TYPE CODE TESTS RESULT OUT OF RANGE REFERENCE UNITS LAB L501.3620 39-308 U/L Normal CPK TOTAL 188 Result Comment: Moderate Hemolysis, Result may be falsely increased. Performed By: #### L501.3620 #### [facility] [place], [address] CBC W/DIFF, AUTOMATED Collected: 06/01/2018 Status: F Source: [place] 8:30 PM [facility] REPOSITORY TYPE CODE TESTS RESULT OUT OF RANGE REFERENCE UNITS LAB L100.1000 4.4-11.0 K/mm3 Normal WBC 6.4 LAB L100.1200 4.6-6.2 M/mm3 Normal RBC 5.12 LAB L100.1300 13.0-16.5 g/dl Normal HGB 15.2 LAB L100.1400 40-54 % Normal HCT 44.7 LAB L100.1500 80-94 fL Normal MCV 87.3 LAB L100.1600 27.0-32.0 pg Normal MCH 29.7 LAB L100.1700 32-36 g/gl Normal MCHC 34.0 LAB L100.1810 11.6-14.6 % Normal RDW CV 13.3 LAB L100.1820 35.1-43.9 fl Normal RDW SD 42.2 LAB L100.1900 150-450 K/mm3 Normal PLT 205 LAB L100.2000 6.2-12.0 fl Normal MPV 10.4 LAB L100.2100 47-70 % Normal NEUT% 56.5 LAB L100.2200 19-41 % Normal LY% 31.0 LAB L100.2300 0-10 % High MONO% 11.4 LAB L100.2400 0-5 % Normal EO% 0.5 LAB L100.2500 0-1 % Normal BASO% 0.3 LAB L100.2550 0.0-0.9 % Normal IM GRAN % 0.300 Result Comment: IG% - Immature Granulocytes (promyelocytes, myelocytes and metamyelocytes) > 1% indicates that a LEFT SHIFT is Present. LAB L100.2620 2.0-7.7 X10 3/uL Normal Absolute Neut 3.6 LAB L100.2720 0.83-4.51 X10 3/ul Normal Absolute Lymph 1.98 Performed By: #### L100.0100 #### [facility] [address] [place], [address] BASIC METABOLIC Collected: 06/01/2018 Status: F Source: [place] PROFILE (BMP) 8:30 PM [facility] REPOSITORY TYPE CODE TESTS RESULT OUT OF RANGE REFERENCE UNITS LAB L501.0100 74-106 mg/dL Normal GLU 98 Result Comment: Please note revised GLUCOSE reference range effective 2017. LAB L501.1000 7-18 mg/dL Normal BUN 12 LAB L501.1100 0.70-1.30 mg/dL Normal CREAT,SERUM 1.02 Result Comment: The validity of the calculated GFR AND GFRAA in patients over 70 years has not been determined. Clinical correlation is essential. LAB L501.1110 >60 mL/min Normal EST GFR 80 Result Comment: Non- GFR Calc LAB L501.1115 >60 mL/min Normal EST GFR - AA 97 Result Comment: GFR Calc LAB L501.1255 ml/min Normal Estimated CRCL 79.17 LAB L501.1300 10-20 RATIO Normal BUN/CRE 11.8 LAB L501.2200 8.5-10 mg/dL Low .1 CA 8.2 LAB L501.5300 136-14 mmol/L Normal 5 NA 138 LAB L501.5600 3.5-5. mmol/L Normal 1 K 4.4 Result Comment: Moderate Hemolysis, Result may be falsely increased. LAB L501.5900 98-107 mmol/L Normal CL 105 LAB L501.6100 21.0-32.0 mmol/L Normal CO2 26.0 LAB L501.6200 5-15 Normal 7 GAP Performed By: #### L500.2500, L500.3400, L501.4010 #### [facility] [address] [place], [address] LIVER PROFILE Collected: 06/01/2018 Status: F Source: [place] 8:30 PM [facility] REPOSITORY TYPE CODE TESTS RESULT OUT OF RANGE REFERENCE UNITS LAB L501.1500 6.4-8.2 g/dL Normal T PROT 7.6 LAB L501.1800 3.2-5.0 g/dL Normal ALB 3.4 LAB L501.1950 2.2-4.2 g/dL Normal GLOB 4.2 LAB L501.4100 15-37 U/L High AST 43 Result Comment: Moderate Hemolysis, Result may be falsely increased. LAB L501.4305 45-117 U/L Normal ALK P 78 LAB L501.4405 16-61 U/L Normal ALT 28 LAB L501.4600 0.20-1.00 mg/dL Normal T BILI 0.60 LAB L501.4700 0.00-0.30 mg/dL Normal D BILI 0.07 Performed By: #### L500.2500, L500.3400, L501.4010 #### [facility] [address] [place], [place], [address] TROPONIN-I Collected: 06/01/2018 Status: F Source: [place] 8:30 [facility] REPOSITORY TYPE CODE TESTS RESULT OUT OF RANGE REFERENCE UNITS LAB L501.4010 <0.045 ng/mL Normal < 0.015 TROPONIN-I Result Comment: TROPONIN-I EXPECTED VALUES <0.045 Negative 0.045 - 0.590 Consistent with Cardiac Damage > OR = 0.600 Critical Value Not every elevated troponin is indicative of PA. These values should be used with clinical judgement in examining the patient's clinical picture for diagnosis. To establish a diagnosis of PA versus myocardial injury, there must be a demonstrated rise and/or fall in the troponin values, in addition to ischemic symptoms, EKG changes, new regional wall motion abnormality, and/or angiographical evidence. PLEASE NOTE: REFERENCE RANGES EDITED 18 Performed By: #### L500.2500, L500.3400, L501.4010 #### [facility] [address] [place], [place], [address] LACTIC ACID Collected: 06/01/2018 Status: F Source: [place] 8:30 PM [facility] REPOSITORY Order Comment: Yes/No query for Sepsis Lactate Rule Y TYPE CODE TESTS RESULT OUT OF RANGE REFERENCE UNITS LAB L503.6005 0.4-2.0 mmol/L Normal LACTIC ACID 0.9 Performed By: #### L503.6005 #### [facility] [address] [place], [place], [address] CHEST 1 VIEW Observed: 06/01/2018 Status: F Source: [place] (PORTABLE) 8:22 PM [facility] REPOSITORY [facility] Imaging Services [address] [place] [address] Chest 1 View (Portable) MR#: [id number] Acct: [id number] Name: AUBREY SYLVESTER Rep #: [id number] : 1960 M 57 From: Krystina Gómez MD PCP: Care Physician, No Primary Status: REG ER Study: Chest 1 View (Portable) Date of Exam: 06/01/18 Exam# [id number] Ordering Dr: Jesse Lockett MD STUDY: X-RAY CHEST REASON FOR EXAM: Male, 57 years old. Chest pain TECHNIQUE: AP portable COMPARISON: None. FINDINGS: Less than optimal inspiratory effort is seen however the lungs are clear There is no demonstrated pleural abnormality. Normal size heart. Normal mediastinum and joaquin. Normal visualized pulmonary arteries. Normal visualized aortic arch and descending thoracic aorta. Normal visualized thoracic spine. Normal visualized ribs, clavicles, and shoulders. There is no demonstrated abnormality of the visualized soft tissue structures of the upper abdomen. RAD/Chest 1 View (Portable) IMPRESSION: No acute cardiopulmonary pathology Electronically Signed: Krystina Gómez MD at 21:05 EDT , Service support , CC: No Primary Care Physician; Jesse Lockett MD Plant Control Aide: Signed ALLERGIES ALLERGIES DATE TYPE / CODE NAME / CODE REACTION SEVERITY SOURCE 07/25/2018 Drug No Known Unknown [facility] Allergy/4160 Allergies/F00 [facility] 19787(SNOMED 1554118(RXNOR Repository CT) M) ENCOUNTERS ENCOUNTERS ADMIT/DISCHARGE ACCOUNT ADMITTING ENCOUNTER LOCATION SOURCE NUMBER CLASS 09/17/2018 [id number] Ambulatory [address] ing:LAB Repository 08/29/2018/ [id number] Ambulatory B[facility]:B [place] [address] 1 [facility] Repository 08/01/2018/ [id number] Ambulatory [place] 8 0 [facility] ing:PT Repository 07/25/2018/ [id number] Ambulatory BMSBuilding:B [place] 8 4 [facility] Repository 06/20/2018/ [id number] Ambulatory BMSBuilding:B [place] 8 9 [facility] Repository 06/01/2018/ [id number] [place], Inpatient [place] Encounter [facility] ing:PCURoom: Repository [id number]: 1 06/01/2018 [id number] [place], Ambulatory BMSBuilding:B [place] 8 [place] Repository 06/01/2018 [id number] [place], Ambulatory BMSBuilding:B [place] [address] [place] Repository 06/01/2018 [id number] [place], Ambulatory BMSBuilding:B [place] [address] [place] [facility] Repository 06/01/2018 [id number] [place], Ambulatory B[facility]Building:B [place] 0 [place] Repository 06/01/2018 [id number] [place], Ambulatory B[facility]Building:B [place] 2 [place] Repository PAYERS PAYERS ENCOUNTER GUARANTOR PAYER SUBSCRIBER SOURCE 09/17/2018 KRYSTINA Verma Primary KRYSTINA Mckenzieoster [id number] Insurance:SARA LYNNB: [facility] Number: [id number] Hospital RDAPT [id number] Repository [address] [place] [address] Date:[id number]: (308) [facility] [phone] () [address] [phone]: 09/17/2018 Secondary NOT GIVENUNK [place] Insurance:SELF PAY [facility] Number: Effective Repository Date:2018-09-17 08/29/2018 KRYSTINA W Primary KRYSTINA Verma [place] [id number] Insurance: HENTHORNDOB: Community BACK [facility] Number: [id number] Hospital RDAPT [id number] Repository [address] [place] [address] Date:[id number] [id number]: (330) NET FEDERAL [phone] (HP) [address] [place] [id number]: 08/29/2018 Secondary NOT GIVENUNK [place] Insurance:SELF PAY [facility] Number: Effective Repository Date:2018-08-29 08/01/2018 KRYSTINA W Primary KRYSTINA Verma [place] [id number] Insurance: HENTHORNDOB: [facility] Number: [id number] Hospital RDAPT [id number] Repository [address] [place] [address] Date:[id number] [id number]: (330) NET FEDERAL [phone] (HP) SERVICES[address] [place] [id number]: 08/01/2018 Secondary NOT GIVENUNK [place] [facility] Insurance:SELF PAY [facility] Number: Effective Repository Date:2018-07-25 07/25/2018 KRYSTINA W Primary KRYSTINA Verma [place] [id number] Insurance: HENTHORNDOB: [facility] Number: [id number] Hospital RDAPT [id number] Repository [address] [place] [address] Date:[id number] [id number]: ([phone]) NET FEDERAL [phone] (HP) SERVICES[address] [place] [id number]: 07/25/2018 Secondary NOT GIVENUNK [place] Insurance:SELF PAY [facility] Number: Effective Repository Date:2018-07-16 06/20/2018 KRYSTINA W Primary KRYSTINA W [place] [facility] [id number] Insurance: HENTHORNDOB: [facility] Number: [id number] Hospital RDAPT [id number] Repository [address] [place] [address] Date:[id number] [id number]: ([phone]) VLY VWOEEWF [phone] () [facility] [address] [address]JN: 06/20/2018 Secondary NOT GIVENUNK [place] [facility] Insurance:SELF PAY [facility] Number: Effective Repository Date:2018-06-20 06/01/2018 KRYSTINA W Primary KRYSTINA W [place] [facility] [id number] Insurance: HENTHORNDOB: Community BACK MASSILLON [facility] Number: [id number] Hospital RDAPT [id number] Repository [address] [place] [address] Date:2018-06-01 [id number]: () 06/01/2018 Secondary NOT GIVENUNK [place] Insurance:SELF PAY [facility] Number: Effective Repository Date:2018-06-01 06/01/2018 KRYSTINA W Primary KRYSTINA W [place] [facility] [id number] Insurance: HENTHORNDOB: Community BACK MASSILLON [facility] Number: [id number] Hospital RDAPT [id number] Repository [address] [place] [address] Date:2018-06-01 [id number]: () 06/01/2018 Secondary NOT GIVENUNK [place] Insurance:SELF PAY [facility] Number: Effective Repository Date:2018-06-01 06/01/2018 KRYSTINA W Primary KRYSTINA W [place] [id number] Insurance: HENTHORNDOB: Community BACK MASSILLON [facility] Number: [id number] Hospital RDAPT [id number] Repository [address] [place] [address] Date:2018-06-01 [id number]: () 06/01/2018 Secondary NOT GIVENUNK [place] Insurance:SELF PAY [facility] Number: Effective Repository Date:2018-06-01 06/01/2018 KRYSTINA W Primary KRYSTINA W [place] [facility] [id number] Insurance: HENTHORNDOB: Community BACK MASSILLON [facility] Number: [id number] Hospital RDAPT [id number] Repository [address] [place] [address] Date:2018-06-01 [id number]: () 06/01/2018 Secondary NOT GIVENUNK [place] Insurance:SELF PAY [facility] Number: Effective Repository Date:2018-06-01 06/01/2018 KRYSTINA W Primary KRYSTINA W [place] [id number] Insurance: HENTHORNDOB: [facility] Number: [id number] Hospital RDAPT [id number] Repository [address] [place] [address] Date:2018-06-01 [id number]: () 06/01/2018 Secondary NOT GIVENUNK [place] Insurance:SELF PAY [facility] Number: Effective Repository Date:2018-06-01 06/01/2018 KRYSTINA W Primary KRYSTINA W [place] [id number] Insurance: HENTHORNDOB: [facility] Number: [id number] Hospital RDAPT [id number] Repository [address] [place] [address] Date:2018-06-01 [id number]: () 06/01/2018 Secondary NOT GIVENUNK [place] Insurance:SELF PAY [facility] Number: Effective Repository Date:2018-06-01
== END ==
PROVIDERS: Family Provider Internal Medicine; PCP Internal Medicine; Referring Provider Internal Medicine; Visit Provider Internal Medicine
DX: I10 Essential (primary) hypertension (principal)
CPT/HCPCS: 36415; 80048